=== PATIENT | male | born 1930 | race Hispanic/Latino ===

== ENCOUNTER 2016-09-02 14:17 | Inpatient (IN) | payer MEDICARE ==
[2016-09-02] MEDS ORDERED: TYLENOL PR STA (14:30)
[2016-09-02] MEDS ORDERED: NACL 0.9% 1000 ML 1,000 ML ONE (14:41)
[2016-09-02 15:04] LABS: Urine Drugs of Abuse Note Disclamer
[2016-09-02 15:15] LABS: Bilirubin,Urine NEG (Negative); Blood,Urine MOD (Negative); Ketones,Urine NEG (Negative); Leukocyte Esterase,Urine LG (Negative); Nitrite,Urine NEG (Negative); Urobilinogen,Urine < 2.0 mg/dL (<2.0)
[2016-09-02] MEDS ORDERED: CARDIZEM IV ONE ×2 (15:25→15:42)
[2016-09-02] MEDS ORDERED: NACL ONE (15:47)
[2016-09-02 15:55] LABS: Hematocrit 37.6 % (35.5-45.6); Hemoglobin 11.8 gm/dl (11.8-15.2); Mean Corpuscular HGB Conc 31 % (32-34); Mean Corpuscular Hemoglobin 27 pg (28-32); Mean Corpuscular Volume 88 fl (84-94); Platelet Count 246 K/mm3 (140-440); Red Cell Distribution Width 14.8 % (13.2-15.2)
[2016-09-02 16:00] LABS: White Blood Count 20.4 K/mm3 (4.5-11.0)
--- NOTE | 2016-09-02 16:04 | Emergency Department Report ---
HPI - General Chief Complaint: Altered Mental Status Time Seen by Provider: 09/02/16 15:27 - HPI HPI: Room 2 The patient is an 85-year-old female presenting with a chief complaint of altered mental status. Patient has a history of Parkinson's disease but is normally alert and talkative. Family states last normal time was approximately 2 days ago. Last night and today the patient appeared lethargic "glassy eyed" and would not speak clearly like it is at his baseline. Family states the patient would grunt occasionally. In coordinating as he is unable to hold water bottle and continued to miss his mouth when trying to drink. The daughter states the patient's urine smell very bad today subsequently the patient was sent from his assisted living facility to the ED for evaluation. Patient does not respond when asked how he is feeling. Location: Mental status Duration: At least 2 days Quality: Altered Severity: Moderate Modifying factors: [see above] Context: [see above] Mode of transportation: [not driving] ED Past Medical Hx - Past Medical History Previous Medical History?: Yes Hx COPD: Yes Hx Dementia: Yes Additional medical history: sleep apnea - Surgical History Past Surgical History?: Yes Additional Surgical History: hip surg, wrist surg, devited septum, vein surgery in legs (per family) - Family History Family history: no significant - Social History Smoking Status: Former Smoker (none since ) Substance Use Type: None - Medications Home Medications: Home Medications Medication Instructions Recorded Confirmed Last Taken Type Ascorbate Calcium [Vitamin C] 1 tab PO DAILY 02/24/14 09/02/16 02/21/14 History Ergocalciferol [Vitamin D2] 1 cap PO QMONTH 02/24/14 09/02/16 02/22/14 History Aspirin [Aspirin BABY CHEW TAB] 81 mg PO DAILY #30 tab.chew 12/14/14 09/02/16 Unknown Rx Carbidopa/Levodopa 25-100 [Sinemet 1 each PO QID #60 tablet 12/14/14 09/02/16 Unknown Rx 25/100] Lactobacillus Combo No.13 1 each PO QDAY 09/02/16 09/02/16 Unknown History [Probiotic Pearls Complete] Memantine Xr [Namenda Xr] 28 mg PO QHS 09/02/16 09/02/16 Unknown History Multivit-Minerals/FA/Lycopene [One 1 each PO QDAY 09/02/16 09/02/16 Unknown History Daily [employer] Tablet] Rivastigmine Tartrate [Exelon] 3 mg PO BID 09/02/16 09/02/16 Unknown History ED Review of Systems ROS: Stated complaint: AMS/ABD PAIN Other details as noted in HPI Comment: All other systems reviewed and negative Constitutional: malaise. denies: fever Eyes: denies: eye pain, eye discharge, vision change ENT: denies: ear pain, throat pain Respiratory: denies: cough, shortness of breath, wheezing Cardiovascular: denies: chest pain, palpitations Endocrine: no symptoms reported Gastrointestinal: abdominal pain Genitourinary: other (foul smelling urine). denies: urgency, dysuria Musculoskeletal: denies: back pain, joint swelling, arthralgia Skin: denies: lesions Neurological: confusion Psychiatric: denies: anxiety, depression Hematological/Lymphatic: denies: easy bleeding, easy bruising Physical Exam - Physical Exam Vital Signs: Vital Signs 09/02/16 09/02/16 14:29 14:42 Temperature 100.5 F H Pulse Rate 120 H Respiratory 17 17 Rate Blood Pressure 104/55 [Left] O2 Sat by Pulse 96 96 Oximetry Physical Exam: GENERAL: The patient is well-developed well-nourished male lying on stretcher appearing confused. [] HEENT: Normocephalic. Atraumatic. Extraocular motions are intact. Patient has moist mucous membranes. NECK: Supple. Trachea midline CHEST/LUNGS: Clear to auscultation. There is no respiratory distress noted. HEART/CARDIOVASCULAR: Irregularly irregular. There is tachycardia. There is no gallop rub or murmur. ABDOMEN: Abdomen is soft, nontender. Patient has normal bowel sounds. There is no abdominal distention. SKIN: There is no rash. There is no edema. There is no diaphoresis. NEURO: The patient is awake but appears lethargic. Patient does not cooperative with neurologic exam. The patient is seen moving all extremities. MUSCULOSKELETAL: There is no evidence of acute injury. ED Course Vital Signs 09/02/16 09/02/16 14:29 14:42 Temperature 100.5 F H Pulse Rate 120 H Respiratory 17 17 Rate Blood Pressure 104/55 [Left] O2 Sat by Pulse 96 96 Oximetry ED Medical Decision Making - Lab Data Result diagrams: 09/02/16 14:48 09/02/16 14:48 Laboratory Tests 09/02/16 09/02/16 09/02/16 14:40 14:40 14:48 WBC 20.4 H RBC 4.30 Hgb 11.8 Hct 37.6 MCV 88 MCH 27 L MCHC 31 L RDW 14.8 Plt Count 246 Add Manual Diff Complete Total Counted 100 Seg Neuts % (Manual) 92.0 H Band Neutrophils % 1.0 Lymphocytes % (Manual) 4.0 L Reactive Lymphs % (Man) 0 Monocytes % (Manual) 3.0 Eosinophils % (Manual) 0 Basophils % (Manual) 0 Metamyelocytes % 0 Myelocytes % 0 Promyelocytes % 0 Blast Cells % 0 Nucleated RBC % Not Reportable Seg Neutrophils # Man 18.8 H Band Neutrophils # 0.2 Lymphocytes # (Manual) 0.8 L Abs React Lymphs (Man) 0.0 Monocytes # (Manual) 0.6 Eosinophils # (Manual) 0.0 Basophils # (Manual) 0.0 Metamyelocytes # 0.0 Myelocytes # 0.0 Promyelocytes # 0.0 Blast Cells # 0.0 WBC Morphology Not Reportable Hypersegmented Neuts Not Reportable Hyposegmented Neuts Not Reportable Hypogranular Neuts Not Reportable Smudge Cells Not Reportable Toxic Granulation Not Reportable Toxic Vacuolation Not Reportable Dohle Bodies Not Reportable Pelger-Huet Anomaly Not Reportable Brittani Rods Not Reportable Platelet Estimate Appears normal Clumped Platelets Not Reportable Plt Clumps, EDTA Not Reportable Large Platelets Not Reportable Giant Platelets Not Reportable Platelet Satelliting Not Reportable Plt Morphology Comment Not Reportable RBC Morphology Not Reportable Dimorphic RBCs Not Reportable Polychromasia Not Reportable Hypochromasia Not Reportable Poikilocytosis Not Reportable Anisocytosis Not Reportable Microcytosis Not Reportable Macrocytosis Not Reportable Spherocytes Not Reportable Pappenheimer Bodies Not Reportable Sickle Cells Not Reportable Target Cells Not Reportable Tear Drop Cells Not Reportable Ovalocytes Few Helmet Cells Not Reportable [place] Bodies Not Reportable [place] Rings Not Reportable [place] Cells Not Reportable Bite Cells Not Reportable Crenated Cell Not Reportable Elliptocytes Not Reportable Acanthocytes (Spur) Not Reportable Rouleaux Not Reportable Hemoglobin C Crystals Not Reportable Schistocytes Not Reportable Malaria parasites Not Reportable Ronald Bodies Not Reportable Hem Pathologist Commnt No PT INR VBG pH Sodium Potassium Chloride Carbon Dioxide Anion Gap BUN Creatinine Estimated GFR BUN/Creatinine Ratio Glucose Lactic Acid Calcium Magnesium Total Bilirubin AST ALT Alkaline Phosphatase Total Protein Albumin Albumin/Globulin Ratio Lipase TSH Free T4 Urine Color Elinor Urine Turbidity Turbid Urine pH 7.0 Ur Specific [place] 1.014 Urine Protein 100 mg/dl Urine Glucose (UA) Neg Urine Ketones Neg Urine Blood Mod Urine Nitrite Neg Urine Bilirubin Neg Urine Urobilinogen < 2.0 Ur Leukocyte Esterase Lg Urine WBC (Auto) 159.0 H Urine RBC (Auto) 130.0 Urine Bacteria (Auto) 4+ Urine WBC Clumps 1+ Salicylates Urine Opiates Screen Presumptive negative Urine Methadone Screen Presumptive negative Acetaminophen Ur Barbiturates Screen Presumptive negative Ur Phencyclidine Scrn Presumptive negative Ur Amphetamines Screen Presumptive negative U Benzodiazepines Scrn Presumptive negative Urine Cocaine Screen Presumptive negative U Marijuana (THC) Screen Presumptive negative Drugs of Abuse Note Disclamer Plasma/Serum Alcohol 09/02/16 09/02/16 09/02/16 14:48 14:48 14:48 WBC RBC Hgb Hct MCV MCH MCHC RDW Plt Count Add Manual Diff Total Counted Seg Neuts % (Manual) Band Neutrophils % Lymphocytes % (Manual) Reactive Lymphs % (Man) Monocytes % (Manual) Eosinophils % (Manual) Basophils % (Manual) Metamyelocytes % Myelocytes % Promyelocytes % Blast Cells % Nucleated RBC % Seg Neutrophils # Man Band Neutrophils # Lymphocytes # (Manual) Abs React Lymphs (Man) Monocytes # (Manual) Eosinophils # (Manual) Basophils # (Manual) Metamyelocytes # Myelocytes # Promyelocytes # Blast Cells # WBC Morphology Hypersegmented Neuts Hyposegmented Neuts Hypogranular Neuts Smudge Cells Toxic Granulation Toxic Vacuolation Dohle Bodies Pelger-Huet Anomaly Brittani Rods Platelet Estimate Clumped Platelets Plt Clumps, EDTA Large Platelets Giant Platelets Platelet Satelliting Plt Morphology Comment RBC Morphology Dimorphic RBCs Polychromasia Hypochromasia Poikilocytosis Anisocytosis Microcytosis Macrocytosis Spherocytes Pappenheimer Bodies Sickle Cells Target Cells Tear Drop Cells Ovalocytes Helmet Cells [place] Bodies [place] Rings [place] Cells Bite Cells Crenated Cell Elliptocytes Acanthocytes (Spur) Rouleaux Hemoglobin C Crystals Schistocytes Malaria parasites Roanld Bodies Hem Pathologist Commnt PT INR VBG pH Sodium 152 H Potassium 4.5 Chloride 111.0 H Carbon Dioxide 24 Anion Gap 22 BUN 75 H Creatinine 3.1 H Estimated GFR 19 BUN/Creatinine Ratio 24.19 Glucose 124 H Lactic Acid 1.6 Calcium 8.9 Magnesium 2.8 H Total Bilirubin 0.3 AST 49 H ALT < 5 L Alkaline Phosphatase 118 Total Protein 8.0 Albumin 2.7 L Albumin/Globulin Ratio 0.5 Lipase 40 TSH 4.260 H Free T4 Urine Color Urine Turbidity Urine pH Ur Specific [place] Urine Protein Urine Glucose (UA) Urine Ketones Urine Blood Urine Nitrite Urine Bilirubin Urine Urobilinogen Ur Leukocyte Esterase Urine WBC (Auto) Urine RBC (Auto) Urine Bacteria (Auto) Urine WBC Clumps Salicylates Urine Opiates Screen Urine Methadone Screen Acetaminophen Ur Barbiturates Screen Ur Phencyclidine Scrn Ur Amphetamines Screen U Benzodiazepines Scrn Urine Cocaine Screen U Marijuana (THC) Screen Drugs of Abuse Note Plasma/Serum Alcohol 09/02/16 09/02/16 09/02/16 14:48 14:48 14:48 WBC RBC Hgb Hct MCV MCH MCHC RDW Plt Count Add Manual Diff Total Counted Seg Neuts % (Manual) Band Neutrophils % Lymphocytes % (Manual) Reactive Lymphs % (Man) Monocytes % (Manual) Eosinophils % (Manual) Basophils % (Manual) Metamyelocytes % Myelocytes % Promyelocytes % Blast Cells % Nucleated RBC % Seg Neutrophils # Man Band Neutrophils # Lymphocytes # (Manual) Abs React Lymphs (Man) Monocytes # (Manual) Eosinophils # (Manual) Basophils # (Manual) Metamyelocytes # Myelocytes # Promyelocytes # Blast Cells # WBC Morphology Hypersegmented Neuts Hyposegmented Neuts Hypogranular Neuts Smudge Cells Toxic Granulation Toxic Vacuolation Dohle Bodies Pelger-Huet Anomaly Brittani Rods Platelet Estimate Clumped Platelets Plt Clumps, EDTA Large Platelets Giant Platelets Platelet Satelliting Plt Morphology Comment RBC Morphology Dimorphic RBCs Polychromasia Hypochromasia Poikilocytosis Anisocytosis Microcytosis Macrocytosis Spherocytes Pappenheimer Bodies Sickle Cells Target Cells Tear Drop Cells Ovalocytes Helmet Cells [place] Bodies [place] Rings [place] Cells Bite Cells Crenated Cell Elliptocytes Acanthocytes (Spur) Rouleaux Hemoglobin C Crystals Schistocytes Malaria parasites Ronald Bodies Hem Pathologist Commnt PT INR VBG pH Sodium Potassium Chloride Carbon Dioxide Anion Gap BUN Creatinine Estimated GFR BUN/Creatinine Ratio Glucose Lactic Acid Calcium Magnesium Total Bilirubin AST ALT Alkaline Phosphatase Total Protein Albumin Albumin/Globulin Ratio Lipase TSH Free T4 Urine Color Urine Turbidity Urine pH Ur Specific [place] Urine Protein Urine Glucose (UA) Urine Ketones Urine Blood Urine Nitrite Urine Bilirubin Urine Urobilinogen Ur Leukocyte Esterase Urine WBC (Auto) Urine RBC (Auto) Urine Bacteria (Auto) Urine WBC Clumps Salicylates < 0.3 L Urine Opiates Screen Urine Methadone Screen Acetaminophen < 15.0 Ur Barbiturates Screen Ur Phencyclidine Scrn Ur Amphetamines Screen U Benzodiazepines Scrn Urine Cocaine Screen U Marijuana (THC) Screen Drugs of Abuse Note Plasma/Serum Alcohol < 0.01 09/02/16 09/02/16 09/02/16 14:48 14:48 14:48 WBC RBC Hgb Hct MCV MCH MCHC RDW Plt Count Add Manual Diff Total Counted Seg Neuts % (Manual) Band Neutrophils % Lymphocytes % (Manual) Reactive Lymphs % (Man) Monocytes % (Manual) Eosinophils % (Manual) Basophils % (Manual) Metamyelocytes % Myelocytes % Promyelocytes % Blast Cells % Nucleated RBC % Seg Neutrophils # Man Band Neutrophils # Lymphocytes # (Manual) Abs React Lymphs (Man) Monocytes # (Manual) Eosinophils # (Manual) Basophils # (Manual) Metamyelocytes # Myelocytes # Promyelocytes # Blast Cells # WBC Morphology Hypersegmented Neuts Hyposegmented Neuts Hypogranular Neuts Smudge Cells Toxic Granulation Toxic Vacuolation Dohle Bodies Pelger-Huet Anomaly Brittani Rods Platelet Estimate Clumped Platelets Plt Clumps, EDTA Large Platelets Giant Platelets Platelet Satelliting Plt Morphology Comment RBC Morphology Dimorphic RBCs Polychromasia Hypochromasia Poikilocytosis Anisocytosis Microcytosis Macrocytosis Spherocytes Pappenheimer Bodies Sickle Cells Target Cells Tear Drop Cells Ovalocytes Helmet Cells [place] Bodies [place] Rings [place] Cells Bite Cells Crenated Cell Elliptocytes Acanthocytes (Spur) Rouleaux Hemoglobin C Crystals Schistocytes Malaria parasites Ronald Bodies Hem Pathologist Commnt PT 14.9 INR 1.18 H VBG pH 7.356 Sodium Potassium Chloride Carbon Dioxide Anion Gap BUN Creatinine Estimated GFR BUN/Creatinine Ratio Glucose Lactic Acid Calcium Magnesium Total Bilirubin AST ALT Alkaline Phosphatase Total Protein Albumin Albumin/Globulin Ratio Lipase TSH Free T4 1.15 Urine Color Urine Turbidity Urine pH Ur Specific [place] Urine Protein Urine Glucose (UA) Urine Ketones Urine Blood Urine Nitrite Urine Bilirubin Urine Urobilinogen Ur Leukocyte Esterase Urine WBC (Auto) Urine RBC (Auto) Urine Bacteria (Auto) Urine WBC Clumps Salicylates Urine Opiates Screen Urine Methadone Screen Acetaminophen Ur Barbiturates Screen Ur Phencyclidine Scrn Ur Amphetamines Screen U Benzodiazepines Scrn Urine Cocaine Screen U Marijuana (THC) Screen Drugs of Abuse Note Plasma/Serum Alcohol - EKG Data -: EKG Interpreted by Me Rate: tachycardia (124 bpm) - EKG Data Interpretation: other (atrial fibrillation with a rapid ventricular response) - Radiology Data Radiology results: report reviewed (CT head, CT abdomen and pelvis), image reviewed (chest x-ray, CT head, CT abdomen and pelvis) interpreted by me: Chest x-ray-no definite focal infiltrates, no pneumothorax CT head (read by radiologist)-no acute abnormality is seen CT abdomen and pelvis (read by radiologist)-findings worrisome for multiple hepatic masses with metastatic disease and the most likely etiology. 3.3 cm mid to distal abdominal aortic aneurysm seen. Bilateral nephrolithiasis is seen with large stones and possible staghorn calculi. 5 mm stone is seen in the mid left ureter causing minimal left-sided hydronephrosis. Prominent attained fecal material seen in the rectum with more mild retained fecal material elsewhere. - Differential Diagnosis new-onset A. fib, CVA, ICH, pneumonia, UTI Critical care attestation.: If time is entered above; I have spent that time in minutes in the direct care of this critically ill patient, excluding procedure time. ED Disposition Clinical Impression: Altered mental status, Atrial fibrillation with rapid ventricular response, Acute renal failure, Fever, UTI (urinary tract infection), Leukocytosis, Hypernatremia, Ureterolithiasis, Liver masses, Abdominal aortic aneurysm Disposition: OP ADMITTED IP TO THIS HOSP Is pt being admited?: Yes Does the pt Need Aspirin: No Condition: Serious Referrals: PRIMARY CARE, [Primary Care Provider] - 3-5 Days Time of Disposition: 17:34 (hospitalist notified)
[2016-09-02 16:05] LABS: Albumin 2.7 g/dL (3.9-5); Albumin/Globulin Ratio 0.5 %; Alkaline Phosphatase 118 units/L (35-129); Anion Gap 22 mmol/L; BUN/Creatinine Ratio 24.19; Bilirubin,Total 0.3 mg/dL (0.1-1.2); Blood Urea Nitrogen 75 mg/dL (9-20); Calcium 8.9 mg/dL (8.4-10.2); Carbon Dioxide 24 mmol/L (22-30); Glucose 124 mg/dL (75-100); Lipase 40 units/L (13-60); Magnesium 2.8 mg/dL (1.7-2.3); Potassium 4.5 mmol/L (3.6-5.0); Sodium 152 mmol/L (137-145)
[2016-09-02 16:08] LABS: Bacteria,Urine 4+ /HPF (Negative)
[2016-09-02] MEDS ORDERED: ROCEPHIN/NS 1 GM/50 ML 1 GM/50 ML BAG IV ONE (16:13)
[2016-09-02 16:14] LABS: Alanine Aminotransferase < 5 units/L (7-56)
[2016-09-02 16:19] LABS: INR 1.18 (0.87-1.13)
[2016-09-02 16:39] LABS: Basophils % (Manual) 0 % (0.0-1.8); Blastocytes % (Manual) 0 %; Eosinophils % (Manual) 0 % (0.0-4.3)
[2016-09-02 16:40] LABS: Ovalocytes Few
[2016-09-02 16:41] LABS: Diff Status Complete
[2016-09-02] MEDS ORDERED: NACL 0.9% 1000 ML 1,000 ML IV ONE (17:00)
[2016-09-02] MEDS ORDERED: CARDIZEM/D5W 100MG/100ML 100 MG/100 ML BAG IV ONE (17:00)
--- NOTE | 2016-09-02 17:10 | Cat Scan Report ---
FINAL REPORT PROCEDURE: CT HEAD/BRAIN WO CON TECHNIQUE: Computerized tomography of the head was performed without contrast material. HISTORY: altered mental status COMPARISON: No prior studies are available for comparison. FINDINGS: Changes of chronic sinusitis are seen in the left maxillary sinus. Mastoid air cells appear clear. No calvarial fracture is seen. Prominent diffuse volume loss is seen with compensatory enlargement of the ventricular system. 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 Mild associated gliosis is seen. Mild chronic small vessel ischemic changes are seen in the periventricular white matter diffusely. No acute CVA is seen. No acute intracranial hemorrhage or mass effect is seen. IMPRESSION: Prominent diffuse volume loss is seen with mild chronic ischemic changes. No acute abnormality is seen.
--- NOTE | 2016-09-02 17:28 | Cat Scan Report ---
FINAL REPORT PROCEDURE: CT ABDOMEN PELVIS WO CON TECHNIQUE: Computerized axial tomography of the abdomen and pelvis was performed without intravenous contrast. This study is performed without intravascular contrast material and its sensitivity for abdominal and pelvic pathology, including neoplasms, inflammation, abscess, free fluid, thrombosis, arterial dissection and infarction, is reduced compared with a contrast enhanced study. HISTORY: altered mental status, history of lower abd pain COMPARISON: No prior studies are available for comparison. FINDINGS: Mild hypoventilatory changes are seen at the lung bases. Artifacts slightly limit the study. Spleen is normal in size. There appear to be vague low-density lesions in the left and right hepatic lobes that are highly worrisome for malignancy, most likely metastatic disease. These cannot be accurately measured on this unenhanced study. Correlation with contrast-enhanced CT or MRI is recommended. Tiny gallstone is seen without evidence of cholecystitis or biliary ductal dilation. Pancreas appears normal. Adrenal glands are normal in size. 3.3 cm mid to distal abdominal aortic aneurysm is seen beginning approximately 3.8 cm below the level of the renal arteries. There is bilateral nephrolithiasis with staghorn calculi seen in the right kidney measuring up to 2.1 x 1.8 cm on image 65 of the axial series. Largest calculus in the left kidney measures 2.0 x 0.9 cm on image 66. Mild increased perinephric streaky densities may be from poor renal function. No right ureteral stone or hydronephrosis is seen there is a likely 5 millimeter stone in the left mid ureter with minimal left-sided hydronephrosis. Bladder is decompressed with a [place] catheter. Bladder wall appears possibly thickened and correlation with urinalysis is recommended. No prostate enlargement is seen. Rectum is dilated to 8.8 cm in diameter with soft fecal material. Little retained fecal material is seen in the descending colon and sigmoid colon. Mild right-sided constipation is suspected. Appendix is not seen. No free pelvic fluid is seen. No suspicious abdominal or pelvic lymphadenopathy is seen. Moderate levoscoliosis is seen in the lumbar spine with moderate to prominent lumbar spondylosis. IMPRESSION: Findings are worrisome for multiple hepatic masses with metastatic disease being the most likely etiology. Correlation with contrast-enhanced CT or MRI is recommended. 3.3 cm mid to distal abdominal aortic aneurysm is seen. Bilateral nephrolithiasis is seen with large stones and possible staghorn calculi. 5 millimeter stone is seen in the mid left ureter causing minimal left-sided hydronephrosis. Prominent retained fecal material is seen in the rectum with more mild retained fecal material elsewhere.
--- NOTE | 2016-09-02 17:35 | History and Physical Report ---
History of Present Illness Chief complaint: Confusion, not acting like normal History of present illness: 85 YO Male with COPD, YESY, Malnutrition, Dementia presents to ED for evaluation. Pt in unable to provide history. Pt family provides history. Pt was at his baseline two days ago as per family. Pt is normally talkative, ambulates independently, feeds himself and conducts ADL's at his Assisted [facility] Facility. Pt has become increasingly confused and weak over the past two days. Pt is now unable to ambulate and care for himself. Pt family denies reports of fever, chills, CP, Palpitation, head trauma, BRBPR, skin rashes, or recent ill contacts. Pt seen in ED and found to have A fib with RVR and initiated on cardizem drip. Past History Past Medical History: cancer, COPD Past Surgical History: Other (Hip, wrist, vblood vessel) Social history: . denies: smoking, alcohol abuse Family history: hypertension Medications and Allergies Allergies Allergy/AdvReac Type Severity Reaction Status Date / Time morphine Allergy AGITATED Verified 02/24/14 16:34 Home Medications Medication Instructions Recorded Confirmed Last Taken Type Ascorbate Calcium [Vitamin C] 1 tab PO DAILY 02/24/14 09/02/16 02/21/14 History Ergocalciferol [Vitamin D2] 1 cap PO QMONTH 02/24/14 09/02/16 02/22/14 History Aspirin [Aspirin BABY CHEW TAB] 81 mg PO DAILY #30 tab.chew 12/14/14 09/02/16 Unknown Rx Carbidopa/Levodopa 25-100 [Sinemet 1 each PO QID #60 tablet 12/14/14 09/02/16 Unknown Rx 25/100] Lactobacillus Combo No.13 1 each PO QDAY 09/02/16 09/02/16 Unknown History [Probiotic Pearls Complete] Memantine Xr [Namenda Xr] 28 mg PO QHS 09/02/16 09/02/16 Unknown History Multivit-Minerals/FA/Lycopene [One 1 each PO QDAY 09/02/16 09/02/16 Unknown History Daily Men's Health Tablet] Rivastigmine Tartrate [Exelon] 3 mg PO BID 09/02/16 09/02/16 Unknown History Active Meds: Active Medications Diltiazem HCl (Cardizem/D5w 100mg/100ml) 100 mg in 100 mls @ 5 mls/hr IV TITR ONE; 5 MG/HR PRN Reason: Protocol Stop: 09/03/16 12:59 Sodium Chloride (Nacl 0.9% 1000 Ml) 1,000 mls @ 250 mls/hr IV ONCE ONE Stop: 09/02/16 20:59 Review of Systems ROS unobtainable: due to mental status Exam - Constitutional Vitals: Temp Pulse Resp BP Pulse Ox 100.5 F H 109 H 16 125/64 93 09/02/16 14:42 09/02/16 16:15 09/02/16 16:15 09/02/16 16:15 09/02/16 16:15 General appearance: Present: severe distress, cachectic - EENT Eyes: Present: PERRL ENT: hearing intact - Neck Neck: Present: supple - Respiratory Respiratory: bilateral: diminished - Cardiovascular Rhythm: irregularly irregular - Extremities Extremities: pulses symmetrical, No edema Peripheral Pulses: within normal limits - Abdominal General gastrointestinal: Present: soft, non-tender, non-distended, normal bowel sounds Male genitourinary: Present: normal - Integumentary Integumentary: Present: clear, dry, decreased turgor - Musculoskeletal Musculoskeletal: generalized weakness - Psychiatric Psychiatric: no intact judgment & insight, no memory intact - Neurologic Neurologic: CNII-XII intact, moves all extremities, no gait normal Results - Labs CBC & Chem 7: 09/03/16 06:05 09/03/16 06:05 Labs: Abnormal lab results 09/02/16 09/02/16 09/02/16 Range/Units 14:40 14:48 14:48 WBC 20.4 H (4.5-11.0) K/mm3 MCH 27 L (28-32) pg MCHC 31 L (32-34) % Seg Neuts % (Manual) 92.0 H (40.0-70.0) % Lymphocytes % (Manual) 4.0 L (13.4-35.0) % Seg Neutrophils # Man 18.8 H (1.8-7.7) K/mm3 Lymphocytes # (Manual) 0.8 L (1.2-5.4) K/mm3 INR (0.87-1.13) Sodium 152 H (137-145) mmol/L Chloride 111.0 H (98-107) mmol/L BUN 75 H (9-20) mg/dL Creatinine 3.1 H (0.8-1.5) mg/dL Glucose 124 H (75-100) mg/dL Magnesium 2.8 H (1.7-2.3) mg/dL AST 49 H (5-40) units/L ALT < 5 L (7-56) units/L Albumin 2.7 L (3.9-5) g/dL TSH (0.270-4.200) mlU/mL Urine WBC (Auto) 159.0 H (0.0-6.0) /HPF Salicylates (2.8-20.0) mg/dL 09/02/16 09/02/16 09/02/16 Range/Units 14:48 14:48 14:48 WBC (4.5-11.0) K/mm3 MCH (28-32) pg MCHC (32-34) % Seg Neuts % (Manual) (40.0-70.0) % Lymphocytes % (Manual) (13.4-35.0) % Seg Neutrophils # Man (1.8-7.7) K/mm3 Lymphocytes # (Manual) (1.2-5.4) K/mm3 INR 1.18 H (0.87-1.13) Sodium (137-145) mmol/L Chloride (98-107) mmol/L BUN (9-20) mg/dL Creatinine (0.8-1.5) mg/dL Glucose (75-100) mg/dL Magnesium (1.7-2.3) mg/dL AST (5-40) units/L ALT (7-56) units/L Albumin (3.9-5) g/dL TSH 4.260 H (0.270-4.200) mlU/mL Urine WBC (Auto) (0.0-6.0) /HPF Salicylates < 0.3 L (2.8-20.0) mg/dL Assessment and Plan - Patient Problems (1) Sepsis Current Visit: Yes Status: Acute Qualifiers: Sepsis type: S Plan to address problem: Sepsis protocol: IV abx, IVF, supportive care, serial lactate, monitor uop q shift, (2) Malnutrition Current Visit: Yes Status: Acute Plan to address problem: encourage oral intake when alert and awake, (3) Encephalopathy Current Visit: Yes Status: Acute Plan to address problem: Supportive care, treat sepsis, (4) UTI (urinary tract infection) Current Visit: Yes Status: Acute Qualifiers: Urinary tract infection type: U Hematuria presence: H Indwelling urinary catheter type: I Encounter type: E Plan to address problem: IV abx, IVF,supportive care, (5) Atrial fibrillation with rapid ventricular response Current Visit: Yes Status: Acute Plan to address problem: Cardizem drip, supportive care, admit to ICU The high probability of a clinically significant, sudden or life threatening deterioration of the [cardiac, pulmonary] system(s) required my full and direct attention, intervention and personal management. The aggregate critical care time was [50] minutes. This time is in addition to time spent performing reported procedures but includes the following: [x] Data Review and interpretation [x] Patient assessment and monitoring of vital signs [x] Documentation [x] Medication orders and management (6) DVT prophylaxis Current Visit: Yes Status: Acute
[2016-09-02] MEDS ORDERED: DUONEB 0.5 MG-3 MG/3 ML SOLN IH PRN (17:52)
[2016-09-02] MEDS ORDERED: PROVENTIL IH PRN ×2 (17:59)
[2016-09-02] MEDS ORDERED: TYLENOL PR ONE (19:22)
[2016-09-02] MEDS: SINEMET PO SCH ×2 (19:36→22:08)
[2016-09-02] MEDS: EXELON PO SCH (22:08)
[2016-09-02] MEDS: NAMENDA XR PO SCH (22:08)
[2016-09-03] MEDS: DUONEB 0.5 MG-3 MG/3 ML SOLN IH SCH ×5 (02:23→19:25)
[2016-09-03 06:32] LABS: Basophils % (Auto) 0.1 % (0.0-1.8); Eosinophils % (Auto) 0.4 % (0.0-4.3); Mean Corpuscular HGB Conc 31 % (32-34); Mean Corpuscular Hemoglobin 27 pg (28-32); Mean Corpuscular Volume 90 fl (84-94); Platelet Count 199 K/mm3 (140-440); White Blood Count 15.5 K/mm3 (4.5-11.0)
[2016-09-03 06:54] LABS: Albumin 2.4 g/dL (3.9-5); Albumin/Globulin Ratio 0.5 %; Alkaline Phosphatase 99 units/L (35-129); Anion Gap 18 mmol/L; BUN/Creatinine Ratio 25.38; Bilirubin,Total 0.3 mg/dL (0.1-1.2); Blood Urea Nitrogen 66 mg/dL (9-20); Calcium 8.4 mg/dL (8.4-10.2); Carbon Dioxide 23 mmol/L (22-30); Chloride 118.5 mmol/L (98-107); Glucose 92 mg/dL (75-100); Potassium 4.7 mmol/L (3.6-5.0); Sodium 155 mmol/L (137-145); Total Protein 6.9 g/dL (6.3-8.2)
[2016-09-03 06:57] LABS: Hematocrit 35.9 % (35.5-45.6)
[2016-09-03 06:58] LABS: Alanine Aminotransferase < 5 units/L (7-56)
--- NOTE | 2016-09-03 09:35 | XRay Report ---
AP CHEST History: Sepsis, Findings: A subtle 2.5 cm density is identified in the lateral left lung which appears to be new since 12/09/14. The remainder of the lungs are clear. No pleural effusion or pneumothorax. Heart and mediastinal structures remain within normal limits. Impression: Subtle left lung opacity as described. This could represent scarring, infiltrate or small mass. Consider further evaluation with CT chest with contrast.
[2016-09-03] MEDS ORDERED: LEVAQUIN 750MG/150ML 750 MG/150 ML BAG IV SCH (10:00)
[2016-09-03] MEDS: SINEMET PO SCH ×4 (10:32→21:57)
[2016-09-03] MEDS: EXELON PO SCH ×2 (10:32→21:57)
[2016-09-03] MEDS: ASPIRIN PO SCH (10:32)
[2016-09-03] MEDS: NACL 0.9% 1000 ML 1,000 ML IV SCH ×2 (14:08→20:17)
[2016-09-03] MEDS ORDERED: TYLENOL PO PRN (16:34)
--- NOTE | 2016-09-03 21:41 | Progress Note ---
Hospitalist Physical - Constitutional Vitals: Temp Pulse Resp BP Pulse Ox 97.9 F 86 22 135/65 96 09/03/16 20:00 09/03/16 20:00 09/03/16 20:00 09/03/16 20:00 09/03/16 20:00 General appearance: Present: severe distress, cachectic Results - Labs CBC & Chem 7: 09/03/16 06:05 09/03/16 06:05 Labs: Laboratory Last Values WBC 15.5 K/mm3 (4.5-11.0) H 09/03/16 06:05 RBC 4.00 M/mm3 (3.65-5.03) 09/03/16 06:05 Hgb 11.0 gm/dl (11.8-15.2) L 09/03/16 06:05 Hct 35.9 % (35.5-45.6) 09/03/16 06:05 MCV 90 fl (84-94) 09/03/16 06:05 MCH 27 pg (28-32) L 09/03/16 06:05 MCHC 31 % (32-34) L 09/03/16 06:05 RDW 15.0 % (13.2-15.2) 09/03/16 06:05 Plt Count 199 K/mm3 (140-440) 09/03/16 06:05 Lymph % (Auto) 4.8 % (13.4-35.0) L 09/03/16 06:05 [place] % (Auto) 6.8 % (0.0-7.3) 09/03/16 06:05 Eos % (Auto) 0.4 % (0.0-4.3) 09/03/16 06:05 Baso % (Auto) 0.1 % (0.0-1.8) 09/03/16 06:05 Lymph # 0.7 K/mm3 (1.2-5.4) L 09/03/16 06:05 [place] # 1.1 K/mm3 (0.0-0.8) H 09/03/16 06:05 Eos # 0.1 K/mm3 (0.0-0.4) 09/03/16 06:05 Baso # 0.0 K/mm3 (0.0-0.1) 09/03/16 06:05 Add Manual Diff Complete 09/02/16 14:48 Total Counted 100 09/02/16 14:48 Seg Neutrophils % 87.9 % (40.0-70.0) H 09/03/16 06:05 Seg Neuts % (Manual) 92.0 % (40.0-70.0) H 09/02/16 14:48 Band Neutrophils % 1.0 % 09/02/16 14:48 Lymphocytes % (Manual) 4.0 % (13.4-35.0) L 09/02/16 14:48 Reactive Lymphs % (Man) 0 % 09/02/16 14:48 Monocytes % (Manual) 3.0 % (0.0-7.3) 09/02/16 14:48 Eosinophils % (Manual) 0 % (0.0-4.3) 09/02/16 14:48 Basophils % (Manual) 0 % (0.0-1.8) 09/02/16 14:48 Metamyelocytes % 0 % 09/02/16 14:48 Myelocytes % 0 % 09/02/16 14:48 Promyelocytes % 0 % 09/02/16 14:48 Blast Cells % 0 % 09/02/16 14:48 Nucleated RBC % Not Reportable 09/02/16 14:48 Seg Neutrophils # 13.6 K/mm3 (1.8-7.7) H 09/03/16 06:05 Seg Neutrophils # Man 18.8 K/mm3 (1.8-7.7) H 09/02/16 14:48 Band Neutrophils # 0.2 K/mm3 09/02/16 14:48 Lymphocytes # (Manual) 0.8 K/mm3 (1.2-5.4) L 09/02/16 14:48 Abs React Lymphs (Man) 0.0 K/mm3 09/02/16 14:48 Monocytes # (Manual) 0.6 K/mm3 (0.0-0.8) 09/02/16 14:48 Eosinophils # (Manual) 0.0 K/mm3 (0.0-0.4) 09/02/16 14:48 Basophils # (Manual) 0.0 K/mm3 (0.0-0.1) 09/02/16 14:48 Metamyelocytes # 0.0 K/mm3 09/02/16 14:48 Myelocytes # 0.0 K/mm3 09/02/16 14:48 Promyelocytes # 0.0 K/mm3 09/02/16 14:48 Blast Cells # 0.0 K/mm3 09/02/16 14:48 WBC Morphology Not Reportable 09/02/16 14:48 Hypersegmented Neuts Not Reportable 09/02/16 14:48 Hyposegmented Neuts Not Reportable 09/02/16 14:48 Hypogranular Neuts Not Reportable 09/02/16 14:48 Smudge Cells Not Reportable 09/02/16 14:48 Toxic Granulation Not Reportable 09/02/16 14:48 Toxic Vacuolation Not Reportable 09/02/16 14:48 Dohle Bodies Not Reportable 09/02/16 14:48 Pelger-Huet Anomaly Not Reportable 09/02/16 14:48 Brittani Rods Not Reportable 09/02/16 14:48 Platelet Estimate Appears normal 09/02/16 14:48 Clumped Platelets Not Reportable 09/02/16 14:48 Plt Clumps, EDTA Not Reportable 09/02/16 14:48 Large Platelets Not Reportable 09/02/16 14:48 Giant Platelets Not Reportable 09/02/16 14:48 Platelet Satelliting Not Reportable 09/02/16 14:48 Plt Morphology Comment Not Reportable 09/02/16 14:48 RBC Morphology Not Reportable 09/02/16 14:48 Dimorphic RBCs Not Reportable 09/02/16 14:48 Polychromasia Not Reportable 09/02/16 14:48 Hypochromasia Not Reportable 09/02/16 14:48 Poikilocytosis Not Reportable 09/02/16 14:48 Anisocytosis Not Reportable 09/02/16 14:48 Microcytosis Not Reportable 09/02/16 14:48 Macrocytosis Not Reportable 09/02/16 14:48 Spherocytes Not Reportable 09/02/16 14:48 Pappenheimer Bodies Not Reportable 09/02/16 14:48 Sickle Cells Not Reportable 09/02/16 14:48 Target Cells Not Reportable 09/02/16 14:48 Tear Drop Cells Not Reportable 09/02/16 14:48 Ovalocytes Few 09/02/16 14:48 Helmet Cells Not Reportable 09/02/16 14:48 [place] Bodies Not Reportable 09/02/16 14:48 [place] Rings Not Reportable 09/02/16 14:48 Candor Cells Not Reportable 09/02/16 14:48 Bite Cells Not Reportable 09/02/16 14:48 Crenated Cell Not Reportable 09/02/16 14:48 Elliptocytes Not Reportable 09/02/16 14:48 Acanthocytes (Spur) Not Reportable 09/02/16 14:48 Rouleaux Not Reportable 09/02/16 14:48 Hemoglobin C Crystals Not Reportable 09/02/16 14:48 Schistocytes Not Reportable 09/02/16 14:48 Malaria parasites Not Reportable 09/02/16 14:48 Ronald Bodies Not Reportable 09/02/16 14:48 Hem Pathologist Commnt No 09/02/16 14:48 PT 14.9 Sec. (12.2-14.9) 09/02/16 14:48 INR 1.18 (0.87-1.13) H 09/02/16 14:48 VBG pH 7.356 (7.320-7.420) 09/02/16 14:48 Sodium 155 mmol/L (137-145) H 09/03/16 06:05 Potassium 4.7 mmol/L (3.6-5.0) 09/03/16 06:05 Chloride 118.5 mmol/L (98-107) H 09/03/16 06:05 Carbon Dioxide 23 mmol/L (22-30) 09/03/16 06:05 Anion Gap 18 mmol/L 09/03/16 06:05 BUN 66 mg/dL (9-20) H 09/03/16 06:05 Creatinine 2.6 mg/dL (0.8-1.5) H 09/03/16 06:05 Estimated GFR 24 ml/min 09/03/16 06:05 BUN/Creatinine Ratio 25.38 % 09/03/16 06:05 Glucose 92 mg/dL (75-100) 09/03/16 06:05 Lactic Acid 0.7 mmol/L (0.7-2.0) 09/02/16 20:42 Calcium 8.4 mg/dL (8.4-10.2) 09/03/16 06:05 Magnesium 2.8 mg/dL (1.7-2.3) H 09/02/16 14:48 Total Bilirubin 0.3 mg/dL (0.1-1.2) 09/03/16 06:05 AST 37 units/L (5-40) 09/03/16 06:05 ALT < 5 units/L (7-56) L 09/03/16 06:05 Alkaline Phosphatase 99 units/L (35-129) 09/03/16 06:05 Total Protein 6.9 g/dL (6.3-8.2) 09/03/16 06:05 Albumin 2.4 g/dL (3.9-5) L 09/03/16 06:05 Albumin/Globulin Ratio 0.5 % 09/03/16 06:05 Lipase 40 units/L (13-60) 09/02/16 14:48 TSH 4.290 mlU/mL (0.270-4.200) H 09/02/16 14:48 Free T4 1.15 ng/dL (0.76-1.46) 09/02/16 14:48 Urine Color Elinor (Yellow) 09/02/16 14:40 Urine Turbidity Turbid (Clear) 09/02/16 14:40 Urine pH 7.0 (5.0-7.0) 09/02/16 14:40 Ur Specific [place] 1.014 (1.003-1.030) 09/02/16 14:40 Urine Protein 100 mg/dl mg/dL (Negative) 09/02/16 14:40 Urine Glucose (UA) Neg mg/dL (Negative) 09/02/16 14:40 Urine Ketones Neg mg/dL (Negative) 09/02/16 14:40 Urine Blood Mod (Negative) 09/02/16 14:40 Urine Nitrite Neg (Negative) 09/02/16 14:40 Urine Bilirubin Neg (Negative) 09/02/16 14:40 Urine Urobilinogen < 2.0 mg/dL (<2.0) 09/02/16 14:40 Ur Leukocyte Esterase Lg (Negative) 09/02/16 14:40 Urine WBC (Auto) 159.0 /HPF (0.0-6.0) H 09/02/16 14:40 Urine RBC (Auto) 130.0 /HPF (0.0-6.0) 09/02/16 14:40 Urine Bacteria (Auto) 4+ /HPF (Negative) 09/02/16 14:40 Urine WBC Clumps 1+ /HPF 09/02/16 14:40 Salicylates < 0.3 mg/dL (2.8-20.0) L 09/02/16 14:48 Urine Opiates Screen Presumptive negative 09/02/16 14:40 Urine Methadone Screen Presumptive negative 09/02/16 14:40 Acetaminophen < 15.0 ug/mL (10.0-30.0) 09/02/16 14:48 Ur Barbiturates Screen Presumptive negative 09/02/16 14:40 Ur Phencyclidine Scrn Presumptive negative 09/02/16 14:40 Ur Amphetamines Screen Presumptive negative 09/02/16 14:40 U Benzodiazepines Scrn Presumptive negative 09/02/16 14:40 Urine Cocaine Screen Presumptive negative 09/02/16 14:40 U Marijuana (THC) Screen Presumptive negative 09/02/16 14:40 Drugs of Abuse Note Disclamer 09/02/16 14:40 Plasma/Serum Alcohol < 0.01 gm% (0-0.07) 09/02/16 14:48
[2016-09-03] MEDS: NAMENDA XR PO SCH (21:57)
[2016-09-04] MEDS: DUONEB 0.5 MG-3 MG/3 ML SOLN IH SCH ×4 (01:03→19:47)
[2016-09-04] MEDS: NACL 0.9% 1000 ML 1,000 ML IV SCH ×2 (06:13→18:26)
[2016-09-04] MEDS: ASPIRIN PO SCH (10:41)
[2016-09-04] MEDS: EXELON PO SCH ×2 (10:41→21:51)
[2016-09-04] MEDS: SINEMET PO SCH ×4 (10:41→21:51)
--- NOTE | 2016-09-04 11:24 | Admit Criteria Form ---
Admission Criteria Documentation: SEPSIS and OTHER FEBRILE ILLNESS, W/O FOCAL INFECTION Clinical Indications for Admission to Inpatient Care ( Place 'X' for any and all applicable criteria): Admission is indicated for ANY ONE of the following (1)(2)(3)(4): [X] I. Bacteremia [X]II. Suspected or identified specific infection requiring hospitalization (eg, meningitis, endocarditis) [ ]III. Hemodynamic instability [X]IV. Altered mental status [ ]V. Failure or unavailability of outpatient antimicrobial treatment [ ]. Hypoxemia [ ]VII. Seizures [ ]VIII. High-risk febrile neutropenia [ ]IX. Need for parenteral antibiotic in patient who is likely to abuse vascular access device (eg, injection drug user) [A](7) [ ]X. Temperature greater than 104.9 degrees F (40.5 degrees C) (oral) [X]XI. Inpatient admission required rather than observation care because of ANY ONE of the following: [X]1) Specific infection identified that is too severe for outpatient treatment or observation care trial [ ]2) Metabolic disorder (eg, hypoglycemia, hyperglycemia, metabolic acidosis) that is severe or persistent [ ]3) Temperature greater than 103.1 degrees F (39.5 degrees C) ( oral) that is not responsive to observation care treatment [ ]4) IV fluid to replace significant ongoing (eg, for over 24 hours) losses (> 3 L/m2 per day) [ ]5) Supplemental oxygen or respiratory treatments for over 24 hours that is performable only in acute inpatient setting [ ]6) Parenteral nutrition regimen need that must be implemented on inpatient basis [ ]7) Strict or protective (eg, laminar flow) isolation [X]8) Other condition, treatment or monitoring requiring inpatient admission Extended stay beyond goal length of stay may be needed for(1)(3) [ ]a) Sepsis or septic shock(22) [ ]b) Positive blood cultures [ ]c) Insufficient oral intake [ ]d) High-risk febrile neutropenia(29)(30) [ ]e) Continued fever and clinical instability [ ]f) Clinically active comorbid illness (e.g,heart failure, renal failure , diabetes) The original [facility] [employer] content created by Sabine Lee has been revised. The portions of the content which have been revised are identified through the use of italic text or in bold, and Sabine Mace[employer] has neither reviewed nor approved the modified material. All other unmodified content is copyright [facility]. Please see references footnoted in the original [facility] edition 2016 Admission Criteria Met: Yes
[2016-09-04 11:28] LABS: Basophils % (Auto) 0.1 % (0.0-1.8); Eosinophils % (Auto) 0.2 % (0.0-4.3); Hematocrit 30.6 % (35.5-45.6); Hemoglobin 9.7 gm/dl (11.8-15.2); Mean Corpuscular HGB Conc 32 % (32-34); Mean Corpuscular Hemoglobin 28 pg (28-32); Mean Corpuscular Volume 87 fl (84-94); Platelet Count 184 K/mm3 (140-440); Red Cell Distribution Width 14.8 % (13.2-15.2); White Blood Count 9.8 K/mm3 (4.5-11.0)
[2016-09-04 11:46] LABS: BUN/Creatinine Ratio 22.17; Calcium 8.6 mg/dL (8.4-10.2); Chloride 123.8 mmol/L (98-107); Potassium 4.3 mmol/L (3.6-5.0)
--- NOTE | 2016-09-04 20:29 | Progress Note ---
Hospitalist Physical - Constitutional Vitals: Temp Pulse Resp BP Pulse Ox 97.7 F 106 H 20 175/92 98 09/04/16 18:13 09/04/16 19:56 09/04/16 19:56 09/04/16 18:13 09/04/16 19:52 General appearance: Present: severe distress, cachectic Results - Labs CBC & Chem 7: 09/04/16 11:11 09/04/16 11:11 Labs: Laboratory Last Values WBC 9.8 K/mm3 (4.5-11.0) 09/04/16 11:11 RBC 3.50 M/mm3 (3.65-5.03) L 09/04/16 11:11 Hgb 9.7 gm/dl (11.8-15.2) L 09/04/16 11:11 Hct 30.6 % (35.5-45.6) L 09/04/16 11:11 MCV 87 fl (84-94) D 09/04/16 11:11 MCH 28 pg (28-32) 09/04/16 11:11 MCHC 32 % (32-34) 09/04/16 11:11 RDW 14.8 % (13.2-15.2) 09/04/16 11:11 Plt Count 184 K/mm3 (140-440) 09/04/16 11:11 Lymph % (Auto) 5.2 % (13.4-35.0) L 09/04/16 11:11 [place] % (Auto) 7.1 % (0.0-7.3) 09/04/16 11:11 Eos % (Auto) 0.2 % (0.0-4.3) 09/04/16 11:11 Baso % (Auto) 0.1 % (0.0-1.8) 09/04/16 11:11 Lymph # 0.5 K/mm3 (1.2-5.4) L 09/04/16 11:11 [place] # 0.7 K/mm3 (0.0-0.8) 09/04/16 11:11 Eos # 0.0 K/mm3 (0.0-0.4) 09/04/16 11:11 Baso # 0.0 K/mm3 (0.0-0.1) 09/04/16 11:11 Add Manual Diff Complete 09/02/16 14:48 Total Counted 100 09/02/16 14:48 Seg Neutrophils % 87.4 % (40.0-70.0) H 09/04/16 11:11 Seg Neuts % (Manual) 92.0 % (40.0-70.0) H 09/02/16 14:48 Band Neutrophils % 1.0 % 09/02/16 14:48 Lymphocytes % (Manual) 4.0 % (13.4-35.0) L 09/02/16 14:48 Reactive Lymphs % (Man) 0 % 09/02/16 14:48 Monocytes % (Manual) 3.0 % (0.0-7.3) 09/02/16 14:48 Eosinophils % (Manual) 0 % (0.0-4.3) 09/02/16 14:48 Basophils % (Manual) 0 % (0.0-1.8) 09/02/16 14:48 Metamyelocytes % 0 % 09/02/16 14:48 Myelocytes % 0 % 09/02/16 14:48 Promyelocytes % 0 % 09/02/16 14:48 Blast Cells % 0 % 09/02/16 14:48 Nucleated RBC % Not Reportable 09/02/16 14:48 Seg Neutrophils # 8.6 K/mm3 (1.8-7.7) H 09/04/16 11:11 Seg Neutrophils # Man 18.8 K/mm3 (1.8-7.7) H 09/02/16 14:48 Band Neutrophils # 0.2 K/mm3 09/02/16 14:48 Lymphocytes # (Manual) 0.8 K/mm3 (1.2-5.4) L 09/02/16 14:48 Abs React Lymphs (Man) 0.0 K/mm3 09/02/16 14:48 Monocytes # (Manual) 0.6 K/mm3 (0.0-0.8) 09/02/16 14:48 Eosinophils # (Manual) 0.0 K/mm3 (0.0-0.4) 09/02/16 14:48 Basophils # (Manual) 0.0 K/mm3 (0.0-0.1) 09/02/16 14:48 Metamyelocytes # 0.0 K/mm3 09/02/16 14:48 Myelocytes # 0.0 K/mm3 09/02/16 14:48 Promyelocytes # 0.0 K/mm3 09/02/16 14:48 Blast Cells # 0.0 K/mm3 09/02/16 14:48 WBC Morphology Not Reportable 09/02/16 14:48 Hypersegmented Neuts Not Reportable 09/02/16 14:48 Hyposegmented Neuts Not Reportable 09/02/16 14:48 Hypogranular Neuts Not Reportable 09/02/16 14:48 Smudge Cells Not Reportable 09/02/16 14:48 Toxic Granulation Not Reportable 09/02/16 14:48 Toxic Vacuolation Not Reportable 09/02/16 14:48 Dohle Bodies Not Reportable 09/02/16 14:48 Pelger-Huet Anomaly Not Reportable 09/02/16 14:48 Brittani Rods Not Reportable 09/02/16 14:48 Platelet Estimate Appears normal 09/02/16 14:48 Clumped Platelets Not Reportable 09/02/16 14:48 Plt Clumps, EDTA Not Reportable 09/02/16 14:48 Large Platelets Not Reportable 09/02/16 14:48 Giant Platelets Not Reportable 09/02/16 14:48 Platelet Satelliting Not Reportable 09/02/16 14:48 Plt Morphology Comment Not Reportable 09/02/16 14:48 RBC Morphology Not Reportable 09/02/16 14:48 Dimorphic RBCs Not Reportable 09/02/16 14:48 Polychromasia Not Reportable 09/02/16 14:48 Hypochromasia Not Reportable 09/02/16 14:48 Poikilocytosis Not Reportable 09/02/16 14:48 Anisocytosis Not Reportable 09/02/16 14:48 Microcytosis Not Reportable 09/02/16 14:48 Macrocytosis Not Reportable 09/02/16 14:48 Spherocytes Not Reportable 09/02/16 14:48 Pappenheimer Bodies Not Reportable 09/02/16 14:48 Sickle Cells Not Reportable 09/02/16 14:48 Target Cells Not Reportable 09/02/16 14:48 Tear Drop Cells Not Reportable 09/02/16 14:48 Ovalocytes Few 09/02/16 14:48 Helmet Cells Not Reportable 09/02/16 14:48 [place] Bodies Not Reportable 09/02/16 14:48 [place] Rings Not Reportable 09/02/16 14:48 Albert Cells Not Reportable 09/02/16 14:48 Bite Cells Not Reportable 09/02/16 14:48 Crenated Cell Not Reportable 09/02/16 14:48 Elliptocytes Not Reportable 09/02/16 14:48 Acanthocytes (Spur) Not Reportable 09/02/16 14:48 Rouleaux Not Reportable 09/02/16 14:48 Hemoglobin C Crystals Not Reportable 09/02/16 14:48 Schistocytes Not Reportable 09/02/16 14:48 Malaria parasites Not Reportable 09/02/16 14:48 Ronald Bodies Not Reportable 09/02/16 14:48 Hem Pathologist Commnt No 09/02/16 14:48 PT 14.9 Sec. (12.2-14.9) 09/02/16 14:48 INR 1.18 (0.87-1.13) H 09/02/16 14:48 VBG pH 7.356 (7.320-7.420) 09/02/16 14:48 Sodium 157 mmol/L (137-145) H 09/04/16 11:11 Potassium 4.3 mmol/L (3.6-5.0) 09/04/16 11:11 Chloride 123.8 mmol/L (98-107) H 09/04/16 11:11 Carbon Dioxide 20 mmol/L (22-30) L 09/04/16 11:11 Anion Gap 18 mmol/L 09/04/16 11:11 BUN 51 mg/dL (9-20) H 09/04/16 11:11 Creatinine 2.3 mg/dL (0.8-1.5) H 09/04/16 11:11 Estimated GFR 27 ml/min 09/04/16 11:11 BUN/Creatinine Ratio 22.17 % 09/04/16 11:11 Glucose 98 mg/dL (75-100) 09/04/16 11:11 Lactic Acid 0.7 mmol/L (0.7-2.0) 09/02/16 20:42 Calcium 8.6 mg/dL (8.4-10.2) 09/04/16 11:11 Magnesium 2.8 mg/dL (1.7-2.3) H 09/02/16 14:48 Total Bilirubin 0.3 mg/dL (0.1-1.2) 09/03/16 06:05 AST 37 units/L (5-40) 09/03/16 06:05 ALT < 5 units/L (7-56) L 09/03/16 06:05 Alkaline Phosphatase 99 units/L (35-129) 09/03/16 06:05 Total Protein 6.9 g/dL (6.3-8.2) 09/03/16 06:05 Albumin 2.4 g/dL (3.9-5) L 09/03/16 06:05 Albumin/Globulin Ratio 0.5 % 09/03/16 06:05 Lipase 40 units/L (13-60) 09/02/16 14:48 TSH 4.290 mlU/mL (0.270-4.200) H 09/02/16 14:48 Free T4 1.15 ng/dL (0.76-1.46) 09/02/16 14:48 Urine Color Elinor (Yellow) 09/02/16 14:40 Urine Turbidity Turbid (Clear) 09/02/16 14:40 Urine pH 7.0 (5.0-7.0) 09/02/16 14:40 Ur Specific [place] 1.014 (1.003-1.030) 09/02/16 14:40 Urine Protein 100 mg/dl mg/dL (Negative) 09/02/16 14:40 Urine Glucose (UA) Neg mg/dL (Negative) 09/02/16 14:40 Urine Ketones Neg mg/dL (Negative) 09/02/16 14:40 Urine Blood Mod (Negative) 09/02/16 14:40 Urine Nitrite Neg (Negative) 09/02/16 14:40 Urine Bilirubin Neg (Negative) 09/02/16 14:40 Urine Urobilinogen < 2.0 mg/dL (<2.0) 09/02/16 14:40 Ur Leukocyte Esterase Lg (Negative) 09/02/16 14:40 Urine WBC (Auto) 159.0 /HPF (0.0-6.0) H 09/02/16 14:40 Urine RBC (Auto) 130.0 /HPF (0.0-6.0) 09/02/16 14:40 Urine Bacteria (Auto) 4+ /HPF (Negative) 09/02/16 14:40 Urine WBC Clumps 1+ /HPF 09/02/16 14:40 Salicylates < 0.3 mg/dL (2.8-20.0) L 09/02/16 14:48 Urine Opiates Screen Presumptive negative 09/02/16 14:40 Urine Methadone Screen Presumptive negative 09/02/16 14:40 Acetaminophen < 15.0 ug/mL (10.0-30.0) 09/02/16 14:48 Ur Barbiturates Screen Presumptive negative 09/02/16 14:40 Ur Phencyclidine Scrn Presumptive negative 09/02/16 14:40 Ur Amphetamines Screen Presumptive negative 09/02/16 14:40 U Benzodiazepines Scrn Presumptive negative 09/02/16 14:40 Urine Cocaine Screen Presumptive negative 09/02/16 14:40 U Marijuana (THC) Screen Presumptive negative 09/02/16 14:40 Drugs of Abuse Note Disclamer 09/02/16 14:40 Plasma/Serum Alcohol < 0.01 gm% (0-0.07) 09/02/16 14:48
[2016-09-04] MEDS: NAMENDA XR PO SCH (21:51)
[2016-09-04] MEDS: APRESOLINE IV PRN (21:51)
[2016-09-05] MEDS: DUONEB 0.5 MG-3 MG/3 ML SOLN IH SCH ×4 (01:46→20:09)
[2016-09-05] MEDS ORDERED: LOPRESSOR IV ONE (03:05)
[2016-09-05] MEDS: NACL 0.9% 1000 ML 1,000 ML IV SCH (03:26)
[2016-09-05] MEDS ORDERED: PROVENTIL IH PRN (09:08)
[2016-09-05] MEDS ORDERED: LEVAQUIN 750MG/150ML 750 MG/150 ML BAG IV SCH (10:00)
[2016-09-05] MEDS: SINEMET PO SCH ×4 (10:19→22:48)
[2016-09-05] MEDS: ASPIRIN PO SCH (10:19)
[2016-09-05] MEDS: EXELON PO SCH ×2 (10:20→22:48)
[2016-09-05] MEDS ORDERED: FLUARIX QUAD 2016-2017(36 MOS+) IM ONE (13:00)
[2016-09-05] MEDS: D5/0.45NS 1,000 ML IV SCH (16:54)
--- NOTE | 2016-09-05 21:35 | Progress Note ---
History Interval history: went back in afib, HR in 120-140, BP wnl, no complaints; family not present Hospitalist Physical - Constitutional Vitals: Temp Pulse Resp BP Pulse Ox 97.4 F L 79 22 154/81 98 09/05/16 16:30 09/05/16 20:19 09/05/16 20:19 09/05/16 16:30 09/05/16 20:14 General appearance: Present: severe distress, cachectic Results - Labs CBC & Chem 7: 09/04/16 11:11 09/04/16 11:11 Labs: Laboratory Last Values WBC 9.8 K/mm3 (4.5-11.0) 09/04/16 11:11 RBC 3.50 M/mm3 (3.65-5.03) L 09/04/16 11:11 Hgb 9.7 gm/dl (11.8-15.2) L 09/04/16 11:11 Hct 30.6 % (35.5-45.6) L 09/04/16 11:11 MCV 87 fl (84-94) D 09/04/16 11:11 MCH 28 pg (28-32) 09/04/16 11:11 MCHC 32 % (32-34) 09/04/16 11:11 RDW 14.8 % (13.2-15.2) 09/04/16 11:11 Plt Count 184 K/mm3 (140-440) 09/04/16 11:11 Lymph % (Auto) 5.2 % (13.4-35.0) L 09/04/16 11:11 [place] % (Auto) 7.1 % (0.0-7.3) 09/04/16 11:11 Eos % (Auto) 0.2 % (0.0-4.3) 09/04/16 11:11 Baso % (Auto) 0.1 % (0.0-1.8) 09/04/16 11:11 Lymph # 0.5 K/mm3 (1.2-5.4) L 09/04/16 11:11 [place] # 0.7 K/mm3 (0.0-0.8) 09/04/16 11:11 Eos # 0.0 K/mm3 (0.0-0.4) 09/04/16 11:11 Baso # 0.0 K/mm3 (0.0-0.1) 09/04/16 11:11 Add Manual Diff Complete 09/02/16 14:48 Total Counted 100 09/02/16 14:48 Seg Neutrophils % 87.4 % (40.0-70.0) H 09/04/16 11:11 Seg Neuts % (Manual) 92.0 % (40.0-70.0) H 09/02/16 14:48 Band Neutrophils % 1.0 % 09/02/16 14:48 Lymphocytes % (Manual) 4.0 % (13.4-35.0) L 09/02/16 14:48 Reactive Lymphs % (Man) 0 % 09/02/16 14:48 Monocytes % (Manual) 3.0 % (0.0-7.3) 09/02/16 14:48 Eosinophils % (Manual) 0 % (0.0-4.3) 09/02/16 14:48 Basophils % (Manual) 0 % (0.0-1.8) 09/02/16 14:48 Metamyelocytes % 0 % 09/02/16 14:48 Myelocytes % 0 % 09/02/16 14:48 Promyelocytes % 0 % 09/02/16 14:48 Blast Cells % 0 % 09/02/16 14:48 Nucleated RBC % Not Reportable 09/02/16 14:48 Seg Neutrophils # 8.6 K/mm3 (1.8-7.7) H 09/04/16 11:11 Seg Neutrophils # Man 18.8 K/mm3 (1.8-7.7) H 09/02/16 14:48 Band Neutrophils # 0.2 K/mm3 09/02/16 14:48 Lymphocytes # (Manual) 0.8 K/mm3 (1.2-5.4) L 09/02/16 14:48 Abs React Lymphs (Man) 0.0 K/mm3 09/02/16 14:48 Monocytes # (Manual) 0.6 K/mm3 (0.0-0.8) 09/02/16 14:48 Eosinophils # (Manual) 0.0 K/mm3 (0.0-0.4) 09/02/16 14:48 Basophils # (Manual) 0.0 K/mm3 (0.0-0.1) 09/02/16 14:48 Metamyelocytes # 0.0 K/mm3 09/02/16 14:48 Myelocytes # 0.0 K/mm3 09/02/16 14:48 Promyelocytes # 0.0 K/mm3 09/02/16 14:48 Blast Cells # 0.0 K/mm3 09/02/16 14:48 WBC Morphology Not Reportable 09/02/16 14:48 Hypersegmented Neuts Not Reportable 09/02/16 14:48 Hyposegmented Neuts Not Reportable 09/02/16 14:48 Hypogranular Neuts Not Reportable 09/02/16 14:48 Smudge Cells Not Reportable 09/02/16 14:48 Toxic Granulation Not Reportable 09/02/16 14:48 Toxic Vacuolation Not Reportable 09/02/16 14:48 Dohle Bodies Not Reportable 09/02/16 14:48 Pelger-Huet Anomaly Not Reportable 09/02/16 14:48 Brittani Rods Not Reportable 09/02/16 14:48 Platelet Estimate Appears normal 09/02/16 14:48 Clumped Platelets Not Reportable 09/02/16 14:48 Plt Clumps, EDTA Not Reportable 09/02/16 14:48 Large Platelets Not Reportable 09/02/16 14:48 Giant Platelets Not Reportable 09/02/16 14:48 Platelet Satelliting Not Reportable 09/02/16 14:48 Plt Morphology Comment Not Reportable 09/02/16 14:48 RBC Morphology Not Reportable 09/02/16 14:48 Dimorphic RBCs Not Reportable 09/02/16 14:48 Polychromasia Not Reportable 09/02/16 14:48 Hypochromasia Not Reportable 09/02/16 14:48 Poikilocytosis Not Reportable 09/02/16 14:48 Anisocytosis Not Reportable 09/02/16 14:48 Microcytosis Not Reportable 09/02/16 14:48 Macrocytosis Not Reportable 09/02/16 14:48 Spherocytes Not Reportable 09/02/16 14:48 Pappenheimer Bodies Not Reportable 09/02/16 14:48 Sickle Cells Not Reportable 09/02/16 14:48 Target Cells Not Reportable 09/02/16 14:48 Tear Drop Cells Not Reportable 09/02/16 14:48 Ovalocytes Few 09/02/16 14:48 Helmet Cells Not Reportable 09/02/16 14:48 [place] Bodies Not Reportable 09/02/16 14:48 [place] Rings Not Reportable 09/02/16 14:48 Albert Cells Not Reportable 09/02/16 14:48 Bite Cells Not Reportable 09/02/16 14:48 Crenated Cell Not Reportable 09/02/16 14:48 Elliptocytes Not Reportable 09/02/16 14:48 Acanthocytes (Spur) Not Reportable 09/02/16 14:48 Rouleaux Not Reportable 09/02/16 14:48 Hemoglobin C Crystals Not Reportable 09/02/16 14:48 Schistocytes Not Reportable 09/02/16 14:48 Malaria parasites Not Reportable 09/02/16 14:48 Ronald Bodies Not Reportable 09/02/16 14:48 Hem Pathologist Commnt No 09/02/16 14:48 PT 14.9 Sec. (12.2-14.9) 09/02/16 14:48 INR 1.18 (0.87-1.13) H 09/02/16 14:48 VBG pH 7.356 (7.320-7.420) 09/02/16 14:48 Sodium 157 mmol/L (137-145) H 09/04/16 11:11 Potassium 4.3 mmol/L (3.6-5.0) 09/04/16 11:11 Chloride 123.8 mmol/L (98-107) H 09/04/16 11:11 Carbon Dioxide 20 mmol/L (22-30) L 09/04/16 11:11 Anion Gap 18 mmol/L 09/04/16 11:11 BUN 51 mg/dL (9-20) H 09/04/16 11:11 Creatinine 2.3 mg/dL (0.8-1.5) H 09/04/16 11:11 Estimated GFR 27 ml/min 09/04/16 11:11 BUN/Creatinine Ratio 22.17 % 09/04/16 11:11 Glucose 98 mg/dL (75-100) 09/04/16 11:11 Lactic Acid 0.7 mmol/L (0.7-2.0) 09/02/16 20:42 Calcium 8.6 mg/dL (8.4-10.2) 09/04/16 11:11 Magnesium 2.8 mg/dL (1.7-2.3) H 09/02/16 14:48 Total Bilirubin 0.3 mg/dL (0.1-1.2) 09/03/16 06:05 AST 37 units/L (5-40) 09/03/16 06:05 ALT < 5 units/L (7-56) L 09/03/16 06:05 Alkaline Phosphatase 99 units/L (35-129) 09/03/16 06:05 Total Protein 6.9 g/dL (6.3-8.2) 09/03/16 06:05 Albumin 2.4 g/dL (3.9-5) L 09/03/16 06:05 Albumin/Globulin Ratio 0.5 % 09/03/16 06:05 Lipase 40 units/L (13-60) 09/02/16 14:48 TSH 4.290 mlU/mL (0.270-4.200) H 09/02/16 14:48 Free T4 1.15 ng/dL (0.76-1.46) 09/02/16 14:48 Urine Color [place]in[place] (Yellow) 09/02/16 14:40 Urine Turbidity Turbid (Clear) 09/02/16 14:40 Urine pH 7.0 (5.0-7.0) 09/02/16 14:40 Ur Specific [place] 1.014 (1.003-1.030) 09/02/16 14:40 Urine Protein 100 mg/dl mg/dL (Negative) 09/02/16 14:40 Urine Glucose (UA) Neg mg/dL (Negative) 09/02/16 14:40 Urine Ketones Neg mg/dL (Negative) 09/02/16 14:40 Urine Blood Mod (Negative) 09/02/16 14:40 Urine Nitrite Neg (Negative) 09/02/16 14:40 Urine Bilirubin Neg (Negative) 09/02/16 14:40 Urine Urobilinogen < 2.0 mg/dL (<2.0) 09/02/16 14:40 Ur Leukocyte Esterase Lg (Negative) 09/02/16 14:40 Urine WBC (Auto) 159.0 /HPF (0.0-6.0) H 09/02/16 14:40 Urine RBC (Auto) 130.0 /HPF (0.0-6.0) 09/02/16 14:40 Urine Bacteria (Auto) 4+ /HPF (Negative) 09/02/16 14:40 Urine WBC Clumps 1+ /HPF 09/02/16 14:40 Salicylates < 0.3 mg/dL (2.8-20.0) L 09/02/16 14:48 Urine Opiates Screen Presumptive negative 09/02/16 14:40 Urine Methadone Screen Presumptive negative 09/02/16 14:40 Acetaminophen < 15.0 ug/mL (10.0-30.0) 09/02/16 14:48 Ur Barbiturates Screen Presumptive negative 09/02/16 14:40 Ur Phencyclidine Scrn Presumptive negative 09/02/16 14:40 Ur Amphetamines Screen Presumptive negative 09/02/16 14:40 U Benzodiazepines Scrn Presumptive negative 09/02/16 14:40 Urine Cocaine Screen Presumptive negative 09/02/16 14:40 U Marijuana (THC) Screen Presumptive negative 09/02/16 14:40 Drugs of Abuse Note Disclamer 09/02/16 14:40 Plasma/Serum Alcohol < 0.01 gm% (0-0.07) 09/02/16 14:48
[2016-09-05] MEDS: NAMENDA XR PO SCH (22:48)
[2016-09-05] MEDS: LOPRESSOR PO SCH (22:49)
[2016-09-06] MEDS: D5/0.45NS 1,000 ML IV SCH ×2 (02:51→12:28)
[2016-09-06 07:14] LABS: Eosinophils % (Auto) 1.5 % (0.0-4.3); Hematocrit 30.5 % (35.5-45.6); Hemoglobin 9.5 gm/dl (11.8-15.2); Mean Corpuscular HGB Conc 31 % (32-34); Mean Corpuscular Hemoglobin 28 pg (28-32); Mean Corpuscular Volume 88 fl (84-94); Platelet Count 183 K/mm3 (140-440); Red Blood Count 3.47 M/mm3 (3.65-5.03); Red Cell Distribution Width 14.6 % (13.2-15.2); White Blood Count 12.8 K/mm3 (4.5-11.0)
[2016-09-06] MEDS: DUONEB 0.5 MG-3 MG/3 ML SOLN IH SCH ×3 (07:17→20:20)
[2016-09-06 07:25] LABS: BUN/Creatinine Ratio 16.81; Calcium 8.3 mg/dL (8.4-10.2); Chloride 123.8 mmol/L (98-107); Magnesium 1.9 mg/dL (1.7-2.3); Potassium 4.1 mmol/L (3.6-5.0)
[2016-09-06] MEDS: SINEMET PO SCH ×4 (10:49→22:47)
[2016-09-06] MEDS: LOPRESSOR PO SCH ×2 (10:49→22:46)
[2016-09-06] MEDS: ASPIRIN PO SCH (10:50)
[2016-09-06] MEDS: EXELON PO SCH ×2 (10:51→22:45)
[2016-09-06] MEDS ORDERED: FLUARIX QUAD 2016-2017(36 MOS+) IM ONE (14:25)
[2016-09-06] MEDS: APRESOLINE IV PRN (17:11)
--- NOTE | 2016-09-06 19:13 | Progress Note ---
Hospitalist Physical - Constitutional Vitals: Temp Pulse Resp BP Pulse Ox 97.3 F L 87 18 195/113 95 09/06/16 17:52 09/06/16 17:52 09/06/16 17:52 09/06/16 17:52 09/06/16 17:52 General appearance: Present: severe distress, cachectic Results - Labs CBC & Chem 7: 09/06/16 06:44 09/06/16 06:44 Labs: Laboratory Last Values WBC 12.8 K/mm3 (4.5-11.0) H 09/06/16 06:44 RBC 3.47 M/mm3 (3.65-5.03) L 09/06/16 06:44 Hgb 9.5 gm/dl (11.8-15.2) L 09/06/16 06:44 Hct 30.5 % (35.5-45.6) L 09/06/16 06:44 MCV 88 fl (84-94) 09/06/16 06:44 MCH 28 pg (28-32) 09/06/16 06:44 MCHC 31 % (32-34) L 09/06/16 06:44 RDW 14.6 % (13.2-15.2) 09/06/16 06:44 Plt Count 183 K/mm3 (140-440) 09/06/16 06:44 Lymph % (Auto) 5.9 % (13.4-35.0) L 09/06/16 06:44 [place] % (Auto) 5.6 % (0.0-7.3) 09/06/16 06:44 Eos % (Auto) 1.5 % (0.0-4.3) 09/06/16 06:44 Baso % (Auto) 0.0 % (0.0-1.8) 09/06/16 06:44 Lymph # 0.8 K/mm3 (1.2-5.4) L 09/06/16 06:44 [place] # 0.7 K/mm3 (0.0-0.8) 09/06/16 06:44 Eos # 0.2 K/mm3 (0.0-0.4) 09/06/16 06:44 Baso # 0.0 K/mm3 (0.0-0.1) 09/06/16 06:44 Add Manual Diff Complete 03/04/17 14:48 Total Counted 100 09/02/16 14:48 Seg Neutrophils % 87.0 % (40.0-70.0) H 09/06/16 06:44 Seg Neuts % (Manual) 92.0 % (40.0-70.0) H 09/02/16 14:48 Band Neutrophils % 1.0 % 09/02/16 14:48 Lymphocytes % (Manual) 4.0 % (13.4-35.0) L 09/02/16 14:48 Reactive Lymphs % (Man) 0 % 09/02/16 14:48 Monocytes % (Manual) 3.0 % (0.0-7.3) 09/02/16 14:48 Eosinophils % (Manual) 0 % (0.0-4.3) 09/02/16 14:48 Basophils % (Manual) 0 % (0.0-1.8) 09/02/16 14:48 Metamyelocytes % 0 % 09/02/16 14:48 Myelocytes % 0 % 09/02/16 14:48 Promyelocytes % 0 % 09/02/16 14:48 Blast Cells % 0 % 09/02/16 14:48 Nucleated RBC % Not Reportable 09/02/16 14:48 Seg Neutrophils # 11.1 K/mm3 (1.8-7.7) H 09/06/16 06:44 Seg Neutrophils # Man 18.8 K/mm3 (1.8-7.7) H 09/02/16 14:48 Band Neutrophils # 0.2 K/mm3 09/02/16 14:48 Lymphocytes # (Manual) 0.8 K/mm3 (1.2-5.4) L 09/02/16 14:48 Abs React Lymphs (Man) 0.0 K/mm3 09/02/16 14:48 Monocytes # (Manual) 0.6 K/mm3 (0.0-0.8) 09/02/16 14:48 Eosinophils # (Manual) 0.0 K/mm3 (0.0-0.4) 09/02/16 14:48 Basophils # (Manual) 0.0 K/mm3 (0.0-0.1) 09/02/16 14:48 Metamyelocytes # 0.0 K/mm3 09/02/16 14:48 Myelocytes # 0.0 K/mm3 09/02/16 14:48 Promyelocytes # 0.0 K/mm3 09/02/16 14:48 Blast Cells # 0.0 K/mm3 09/02/16 14:48 WBC Morphology Not Reportable 09/02/16 14:48 Hypersegmented Neuts Not Reportable 09/02/16 14:48 Hyposegmented Neuts Not Reportable 09/02/16 14:48 Hypogranular Neuts Not Reportable 09/02/16 14:48 Smudge Cells Not Reportable 09/02/16 14:48 Toxic Granulation Not Reportable 09/02/16 14:48 Toxic Vacuolation Not Reportable 09/02/16 14:48 Dohle Bodies Not Reportable 09/02/16 14:48 Pelger-Huet Anomaly Not Reportable 09/02/16 14:48 Brittani Rods Not Reportable 09/02/16 14:48 Platelet Estimate Appears normal 09/02/16 14:48 Clumped Platelets Not Reportable 09/02/16 14:48 Plt Clumps, EDTA Not Reportable 09/02/16 14:48 Large Platelets Not Reportable 09/02/16 14:48 Giant Platelets Not Reportable 09/02/16 14:48 Platelet Satelliting Not Reportable 09/02/16 14:48 Plt Morphology Comment Not Reportable 09/02/16 14:48 RBC Morphology Not Reportable 09/02/16 14:48 Dimorphic RBCs Not Reportable 09/02/16 14:48 Polychromasia Not Reportable 09/02/16 14:48 Hypochromasia Not Reportable 09/02/16 14:48 Poikilocytosis Not Reportable 09/02/16 14:48 Anisocytosis Not Reportable 09/02/16 14:48 Microcytosis Not Reportable 09/02/16 14:48 Macrocytosis Not Reportable 09/02/16 14:48 Spherocytes Not Reportable 09/02/16 14:48 Pappenheimer Bodies Not Reportable 09/02/16 14:48 Sickle Cells Not Reportable 09/02/16 14:48 Target Cells Not Reportable 09/02/16 14:48 Tear Drop Cells Not Reportable 09/02/16 14:48 Ovalocytes Few 09/02/16 14:48 Helmet Cells Not Reportable 09/02/16 14:48 [place] Bodies Not Reportable 09/02/16 14:48 [place] Rings Not Reportable 09/02/16 14:48 Albert Cells Not Reportable 09/02/16 14:48 Bite Cells Not Reportable 09/02/16 14:48 Crenated Cell Not Reportable 09/02/16 14:48 Elliptocytes Not Reportable 09/02/16 14:48 Acanthocytes (Spur) Not Reportable 09/02/16 14:48 Rouleaux Not Reportable 09/02/16 14:48 Hemoglobin C Crystals Not Reportable 09/02/16 14:48 Schistocytes Not Reportable 09/02/16 14:48 Malaria parasites Not Reportable 09/02/16 14:48 Ronald Bodies Not Reportable 09/02/16 14:48 Hem Pathologist Commnt No 09/02/16 14:48 PT 14.9 Sec. (12.2-14.9) 09/02/16 14:48 INR 1.18 (0.87-1.13) H 09/02/16 14:48 VBG pH 7.356 (7.320-7.420) 09/02/16 14:48 Sodium 155 mmol/L (137-145) H 09/06/16 06:44 Potassium 4.1 mmol/L (3.6-5.0) 09/06/16 06:44 Chloride 123.8 mmol/L (98-107) H 09/06/16 06:44 Carbon Dioxide 18 mmol/L (22-30) L 09/06/16 06:44 Anion Gap 17 mmol/L 09/06/16 06:44 BUN 37 mg/dL (9-20) H 09/06/16 06:44 Creatinine 2.2 mg/dL (0.8-1.5) H 09/06/16 06:44 Estimated GFR 29 ml/min 09/06/16 06:44 BUN/Creatinine Ratio 16.81 % 09/06/16 06:44 Glucose 109 mg/dL (75-100) H 09/06/16 06:44 Lactic Acid 0.7 mmol/L (0.7-2.0) 09/02/16 20:42 Calcium 8.3 mg/dL (8.4-10.2) L 09/06/16 06:44 Magnesium 1.9 mg/dL (1.7-2.3) 09/06/16 06:44 Total Bilirubin 0.3 mg/dL (0.1-1.2) 09/03/16 06:05 AST 37 units/L (5-40) 09/03/16 06:05 ALT < 5 units/L (7-56) L 09/03/16 06:05 Alkaline Phosphatase 99 units/L (35-129) 09/03/16 06:05 Total Protein 6.9 g/dL (6.3-8.2) 09/03/16 06:05 Albumin 2.4 g/dL (3.9-5) L 09/03/16 06:05 Albumin/Globulin Ratio 0.5 % 09/03/16 06:05 Lipase 40 units/L (13-60) 09/02/16 14:48 TSH 4.290 mlU/mL (0.270-4.200) H 09/02/16 14:48 Free T4 1.15 ng/dL (0.76-1.46) 09/02/16 14:48 Urine Color [place]in[place] (Yellow) 09/02/16 14:40 Urine Turbidity Turbid (Clear) 09/02/16 14:40 Urine pH 7.0 (5.0-7.0) 09/02/16 14:40 Ur Specific [place] 1.014 (1.003-1.030) 09/02/16 14:40 Urine Protein 100 mg/dl mg/dL (Negative) 09/02/16 14:40 Urine Glucose (UA) Neg mg/dL (Negative) 09/02/16 14:40 Urine Ketones Neg mg/dL (Negative) 09/02/16 14:40 Urine Blood Mod (Negative) 09/02/16 14:40 Urine Nitrite Neg (Negative) 09/02/16 14:40 Urine Bilirubin Neg (Negative) 09/02/16 14:40 Urine Urobilinogen < 2.0 mg/dL (<2.0) 09/02/16 14:40 Ur Leukocyte Esterase Lg (Negative) 09/02/16 14:40 Urine WBC (Auto) 159.0 /HPF (0.0-6.0) H 09/02/16 14:40 Urine RBC (Auto) 130.0 /HPF (0.0-6.0) 09/02/16 14:40 Urine Bacteria (Auto) 4+ /HPF (Negative) 09/02/16 14:40 Urine WBC Clumps 1+ /HPF 09/02/16 14:40 Salicylates < 0.3 mg/dL (2.8-20.0) L 09/02/16 14:48 Urine Opiates Screen Presumptive negative 09/02/16 14:40 Urine Methadone Screen Presumptive negative 09/02/16 14:40 Acetaminophen < 15.0 ug/mL (10.0-30.0) 09/02/16 14:48 Ur Barbiturates Screen Presumptive negative 09/02/16 14:40 Ur Phencyclidine Scrn Presumptive negative 09/02/16 14:40 Ur Amphetamines Screen Presumptive negative 09/02/16 14:40 U Benzodiazepines Scrn Presumptive negative 09/02/16 14:40 Urine Cocaine Screen Presumptive negative 09/02/16 14:40 U Marijuana (THC) Screen Presumptive negative 09/02/16 14:40 Drugs of Abuse Note Disclamer 09/02/16 14:40 Plasma/Serum Alcohol < 0.01 gm% (0-0.07) 09/02/16 14:48
[2016-09-06] MEDS: NAMENDA XR PO SCH (22:45)
[2016-09-07 07:37] LABS: BUN/Creatinine Ratio 16.19; Calcium 8.2 mg/dL (8.4-10.2); Chloride 120.5 mmol/L (98-107); Potassium 4.3 mmol/L (3.6-5.0)
[2016-09-07] MEDS: DUONEB 0.5 MG-3 MG/3 ML SOLN IH SCH ×3 (07:45→20:42)
[2016-09-07] MEDS: LOPRESSOR PO SCH ×2 (13:13→21:35)
[2016-09-07] MEDS: LEVAQUIN PO SCH (13:13)
[2016-09-07] MEDS: ASPIRIN PO SCH (13:13)
[2016-09-07] MEDS: EXELON PO SCH ×2 (13:13→21:34)
[2016-09-07] MEDS: SINEMET PO SCH ×4 (13:14→21:35)
--- NOTE | 2016-09-07 20:06 | Progress Note ---
Assessment and Plan Assessment and plan: Sepsis secondary to UTI A. fib with RVR Acute on chronic kidney disease Hypernatremia Abnormal CT abdomen Malnutrition History Interval history: somnolent, but arousable present; discussed with abnormal CT abdominal findings suggestive of metastatic disease and past medical history of cancer mentioned in H&P; stating that he has never been diagnosed with any type of cancer; obtained his PCP name , will try to contact his office and obtain records Hospitalist Physical - Constitutional Vitals: Temp Pulse Resp BP Pulse Ox 98.3 F 74 18 137/85 96 09/07/16 18:29 09/07/16 18:29 09/07/16 18:29 09/07/16 18:29 09/07/16 18:29 General appearance: Present: severe distress, cachectic Results - Labs CBC & Chem 7: 09/06/16 06:44 09/07/16 06:04 Labs: Laboratory Last Values WBC 12.8 K/mm3 (4.5-11.0) H 09/06/16 06:44 RBC 3.47 M/mm3 (3.65-5.03) L 09/06/16 06:44 Hgb 9.5 gm/dl (11.8-15.2) L 09/06/16 06:44 Hct 30.5 % (35.5-45.6) L 09/06/16 06:44 MCV 88 fl (84-94) 09/06/16 06:44 MCH 28 pg (28-32) 09/06/16 06:44 MCHC 31 % (32-34) L 09/06/16 06:44 RDW 14.6 % (13.2-15.2) 09/06/16 06:44 Plt Count 183 K/mm3 (140-440) 09/06/16 06:44 Lymph % (Auto) 5.9 % (13.4-35.0) L 09/06/16 06:44 [place] % (Auto) 5.6 % (0.0-7.3) 09/06/16 06:44 Eos % (Auto) 1.5 % (0.0-4.3) 09/06/16 06:44 Baso % (Auto) 0.0 % (0.0-1.8) 09/06/16 06:44 Lymph # 0.8 K/mm3 (1.2-5.4) L 09/06/16 06:44 [place] # 0.7 K/mm3 (0.0-0.8) 09/06/16 06:44 Eos # 0.2 K/mm3 (0.0-0.4) 09/06/16 06:44 Baso # 0.0 K/mm3 (0.0-0.1) 09/06/16 06:44 Add Manual Diff Complete 09/02/16 14:48 Total Counted 100 09/02/16 14:48 Seg Neutrophils % 87.0 % (40.0-70.0) H 09/06/16 06:44 Seg Neuts % (Manual) 92.0 % (40.0-70.0) H 09/02/16 14:48 Band Neutrophils % 1.0 % 09/02/16 14:48 Lymphocytes % (Manual) 4.0 % (13.4-35.0) L 09/02/16 14:48 Reactive Lymphs % (Man) 0 % 09/02/16 14:48 Monocytes % (Manual) 3.0 % (0.0-7.3) 09/02/16 14:48 Eosinophils % (Manual) 0 % (0.0-4.3) 09/02/16 14:48 Basophils % (Manual) 0 % (0.0-1.8) 09/02/16 14:48 Metamyelocytes % 0 % 09/02/16 14:48 Myelocytes % 0 % 09/02/16 14:48 Promyelocytes % 0 % 09/02/16 14:48 Blast Cells % 0 % 09/02/16 14:48 Nucleated RBC % Not Reportable 09/02/16 14:48 Seg Neutrophils # 11.1 K/mm3 (1.8-7.7) H 09/06/16 06:44 Seg Neutrophils # Man 18.8 K/mm3 (1.8-7.7) H 09/02/16 14:48 Band Neutrophils # 0.2 K/mm3 09/02/16 14:48 Lymphocytes # (Manual) 0.8 K/mm3 (1.2-5.4) L 09/02/16 14:48 Abs React Lymphs (Man) 0.0 K/mm3 09/02/16 14:48 Monocytes # (Manual) 0.6 K/mm3 (0.0-0.8) 09/02/16 14:48 Eosinophils # (Manual) 0.0 K/mm3 (0.0-0.4) 09/02/16 14:48 Basophils # (Manual) 0.0 K/mm3 (0.0-0.1) 09/02/16 14:48 Metamyelocytes # 0.0 K/mm3 09/02/16 14:48 Myelocytes # 0.0 K/mm3 09/02/16 14:48 Promyelocytes # 0.0 K/mm3 09/02/16 14:48 Blast Cells # 0.0 K/mm3 09/02/16 14:48 WBC Morphology Not Reportable 09/02/16 14:48 Hypersegmented Neuts Not Reportable 09/02/16 14:48 Hyposegmented Neuts Not Reportable 09/02/16 14:48 Hypogranular Neuts Not Reportable 09/02/16 14:48 Smudge Cells Not Reportable 09/02/16 14:48 Toxic Granulation Not Reportable 09/02/16 14:48 Toxic Vacuolation Not Reportable 09/02/16 14:48 Dohle Bodies Not Reportable 09/02/16 14:48 Pelger-Huet Anomaly Not Reportable 09/02/16 14:48 Brittani Rods Not Reportable 09/02/16 14:48 Platelet Estimate Appears normal 09/02/16 14:48 Clumped Platelets Not Reportable 09/02/16 14:48 Plt Clumps, EDTA Not Reportable 09/02/16 14:48 Large Platelets Not Reportable 09/02/16 14:48 Giant Platelets Not Reportable 09/02/16 14:48 Platelet Satelliting Not Reportable 09/02/16 14:48 Plt Morphology Comment Not Reportable 09/02/16 14:48 RBC Morphology Not Reportable 09/02/16 14:48 Dimorphic RBCs Not Reportable 09/02/16 14:48 Polychromasia Not Reportable 09/02/16 14:48 Hypochromasia Not Reportable 09/02/16 14:48 Poikilocytosis Not Reportable 09/02/16 14:48 Anisocytosis Not Reportable 09/02/16 14:48 Microcytosis Not Reportable 09/02/16 14:48 Macrocytosis Not Reportable 09/02/16 14:48 Spherocytes Not Reportable 09/02/16 14:48 Pappenheimer Bodies Not Reportable 09/02/16 14:48 Sickle Cells Not Reportable 09/02/16 14:48 Target Cells Not Reportable 09/02/16 14:48 Tear Drop Cells Not Reportable 09/02/16 14:48 Ovalocytes Few 09/02/16 14:48 Helmet Cells Not Reportable 09/02/16 14:48 [place] Bodies Not Reportable 09/02/16 14:[address] [place] Rings Not Reportable 09/02/16 14:48 [place] Cells Not Reportable 09/02/16 14:48 Bite Cells Not Reportable 09/02/16 14:48 Crenated Cell Not Reportable 09/02/16 14:48 Elliptocytes Not Reportable 09/02/16 14:48 Acanthocytes (Spur) Not Reportable 09/02/16 14:48 Rouleaux Not Reportable 09/02/16 14:48 Hemoglobin C Crystals Not Reportable 09/02/16 14:48 Schistocytes Not Reportable 09/02/16 14:48 Malaria parasites Not Reportable 09/02/16 14:48 Ronald Bodies Not Reportable 09/02/16 14:48 Hem Pathologist Commnt No 09/02/16 14:48 PT 14.9 Sec. (12.2-14.9) 09/02/16 14:48 INR 1.18 (0.87-1.13) H 09/02/16 14:48 VBG pH 7.356 (7.320-7.420) 09/02/16 14:48 Sodium 151 mmol/L (137-145) H 09/07/16 06:04 Potassium 4.3 mmol/L (3.6-5.0) 09/07/16 06:04 Chloride 120.5 mmol/L (98-107) H 09/07/16 06:04 Carbon Dioxide 19 mmol/L (22-30) L 09/07/16 06:04 Anion Gap 16 mmol/L 09/07/16 06:04 BUN 34 mg/dL (9-20) H 09/07/16 06:04 Creatinine 2.1 mg/dL (0.8-1.5) H 09/07/16 06:04 Estimated GFR 30 ml/min 09/07/16 06:04 BUN/Creatinine Ratio 16.19 % 09/07/16 06:04 Glucose 101 mg/dL (75-100) H 09/07/16 06:04 POC Glucose 113 (70-105) H 09/06/16 21:45 Lactic Acid 0.7 mmol/L (0.7-2.0) 09/02/16 20:42 Calcium 8.2 mg/dL (8.4-10.2) L 09/07/16 06:04 Magnesium 1.9 mg/dL (1.7-2.3) 09/06/16 06:44 Total Bilirubin 0.3 mg/dL (0.1-1.2) 09/03/16 06:05 AST 37 units/L (5-40) 09/03/16 06:05 ALT < 5 units/L (7-56) L 09/03/16 06:05 Alkaline Phosphatase 99 units/L (35-129) 09/03/16 06:05 Total Protein 6.9 g/dL (6.3-8.2) 09/03/16 06:05 Albumin 2.4 g/dL (3.9-5) L 09/03/16 06:05 Albumin/Globulin Ratio 0.5 % 09/03/16 06:05 Lipase 40 units/L (13-60) 09/02/16 14:48 TSH 4.290 mlU/mL (0.270-4.200) H 09/02/16 14:48 Free T4 1.15 ng/dL (0.76-1.46) 09/02/16 14:48 Urine Color Elinor (Yellow) 09/02/16 14:40 Urine Turbidity Turbid (Clear) 09/02/16 14:40 Urine pH 7.0 (5.0-7.0) 09/02/16 14:40 Ur Specific [place] 1.014 (1.003-1.030) 09/02/16 14:40 Urine Protein 100 mg/dl mg/dL (Negative) 09/02/16 14:40 Urine Glucose (UA) Neg mg/dL (Negative) 09/02/16 14:40 Urine Ketones Neg mg/dL (Negative) 09/02/16 14:40 Urine Blood Mod (Negative) 09/02/16 14:40 Urine Nitrite Neg (Negative) 09/02/16 14:40 Urine Bilirubin Neg (Negative) 09/02/16 14:40 Urine Urobilinogen < 2.0 mg/dL (<2.0) 09/02/16 14:40 Ur Leukocyte Esterase Lg (Negative) 09/02/16 14:40 Urine WBC (Auto) 159.0 /HPF (0.0-6.0) H 09/02/16 14:40 Urine RBC (Auto) 130.0 /HPF (0.0-6.0) 09/02/16 14:40 Urine Bacteria (Auto) 4+ /HPF (Negative) 09/02/16 14:40 Urine WBC Clumps 1+ /HPF 09/02/16 14:40 Salicylates < 0.3 mg/dL (2.8-20.0) L 09/02/16 14:48 Urine Opiates Screen Presumptive negative 09/02/16 14:40 Urine Methadone Screen Presumptive negative 09/02/16 14:40 Acetaminophen < 15.0 ug/mL (10.0-30.0) 09/02/16 14:48 Ur Barbiturates Screen Presumptive negative 09/02/16 14:40 Ur Phencyclidine Scrn Presumptive negative 09/02/16 14:40 Ur Amphetamines Screen Presumptive negative 09/02/16 14:40 U Benzodiazepines Scrn Presumptive negative 09/02/16 14:40 Urine Cocaine Screen Presumptive negative 09/02/16 14:40 U Marijuana (THC) Screen Presumptive negative 09/02/16 14:40 Drugs of Abuse Note Disclamer 09/02/16 14:40 Plasma/Serum Alcohol < 0.01 gm% (0-0.07) 09/02/16 14:48
[2016-09-07] MEDS: NAMENDA XR PO SCH (21:34)
[2016-09-08 05:41] LABS: Basophils % (Auto) 0.1 % (0.0-1.8); Eosinophils % (Auto) 2.8 % (0.0-4.3); Hematocrit 35.7 % (35.5-45.6); Hemoglobin 11.2 gm/dl (11.8-15.2); Mean Corpuscular HGB Conc 31 % (32-34); Mean Corpuscular Hemoglobin 27 pg (28-32); Mean Corpuscular Volume 88 fl (84-94); Platelet Count 235 K/mm3 (140-440); Red Blood Count 4.07 M/mm3 (3.65-5.03); Red Cell Distribution Width 14.4 % (13.2-15.2); White Blood Count 18.3 K/mm3 (4.5-11.0)
[2016-09-08 06:04] LABS: BUN/Creatinine Ratio 17.89; Calcium 8.1 mg/dL (8.4-10.2); Chloride 117.4 mmol/L (98-107); Potassium 4.2 mmol/L (3.6-5.0)
[2016-09-08] MEDS: DUONEB 0.5 MG-3 MG/3 ML SOLN IH SCH ×3 (08:27→20:09)
[2016-09-08] MEDS ORDERED: PROVENTIL IH PRN (09:00)
[2016-09-08] MEDS: SINEMET PO SCH ×4 (10:00→22:38)
[2016-09-08] MEDS ORDERED: PNEUMOVAX 23 IM ONE (12:00)
[2016-09-08] MEDS: ASPIRIN PO SCH (13:00)
[2016-09-08] MEDS: LOPRESSOR PO SCH ×2 (13:00→22:45)
[2016-09-08] MEDS: EXELON PO SCH ×2 (13:00→22:38)
[2016-09-08] MEDS: D5/0.45NS 1,000 ML IV SCH (16:12)
--- NOTE | 2016-09-08 19:24 | Progress Note ---
Assessment and Plan Assessment and plan: Sepsis secondary to UTI A. fib with RVR Acute on chronic kidney disease Hypernatremia Abnormal CT abdomen Malnutrition Hospitalist Physical - Constitutional Vitals: Temp Pulse Resp BP Pulse Ox 97.0 F L 110 H 18 124/73 97 09/08/16 18:13 09/08/16 18:13 09/08/16 18:13 09/08/16 18:13 09/08/16 18:13 General appearance: Present: severe distress, cachectic Results - Labs CBC & Chem 7: 09/08/16 04:49 09/08/16 04:49 Labs: Laboratory Last Values WBC 18.3 K/mm3 (4.5-11.0) H 09/08/16 04:49 RBC 4.07 M/mm3 (3.65-5.03) 09/08/16 04:49 Hgb 11.2 gm/dl (11.8-15.2) L 09/08/16 04:49 Hct 35.7 % (35.5-45.6) 09/08/16 04:49 MCV 88 fl (84-94) 09/08/16 04:49 MCH 27 pg (28-32) L 09/08/16 04:49 MCHC 31 % (32-34) L 09/08/16 04:49 RDW 14.4 % (13.2-15.2) 09/08/16 04:49 Plt Count 235 K/mm3 (140-440) 09/08/16 04:49 Lymph % (Auto) 5.9 % (13.4-35.0) L 09/08/16 04:49 [place] % (Auto) 4.8 % (0.0-7.3) 09/08/16 04:49 Eos % (Auto) 2.8 % (0.0-4.3) 09/08/16 04:49 Baso % (Auto) 0.1 % (0.0-1.8) 09/08/16 04:49 Lymph # 1.1 K/mm3 (1.2-5.4) L 09/08/16 04:49 [place] # 0.9 K/mm3 (0.0-0.8) H 09/08/16 04:49 Eos # 0.5 K/mm3 (0.0-0.4) H 09/08/16 04:49 Baso # 0.0 K/mm3 (0.0-0.1) 09/08/16 04:49 Add Manual Diff Complete 09/02/16 14:48 Total Counted 100 09/02/16 14:48 Seg Neutrophils % 86.4 % (40.0-70.0) H 09/08/16 04:49 Seg Neuts % (Manual) 92.0 % (40.0-70.0) H 09/02/16 14:48 Band Neutrophils % 1.0 % 09/02/16 14:48 Lymphocytes % (Manual) 4.0 % (13.4-35.0) L 09/02/16 14:48 Reactive Lymphs % (Man) 0 % 09/02/16 14:48 Monocytes % (Manual) 3.0 % (0.0-7.3) 09/02/16 14:48 Eosinophils % (Manual) 0 % (0.0-4.3) 09/02/16 14:48 Basophils % (Manual) 0 % (0.0-1.8) 09/02/16 14:48 Metamyelocytes % 0 % 09/02/16 14:48 Myelocytes % 0 % 09/02/16 14:48 Promyelocytes % 0 % 09/02/16 14:48 Blast Cells % 0 % 09/02/16 14:48 Nucleated RBC % Not Reportable 09/02/16 14:48 Seg Neutrophils # 15.8 K/mm3 (1.8-7.7) H 09/08/16 04:49 Seg Neutrophils # Man 18.8 K/mm3 (1.8-7.7) H 09/02/16 14:48 Band Neutrophils # 0.2 K/mm3 09/02/16 14:48 Lymphocytes # (Manual) 0.8 K/mm3 (1.2-5.4) L 09/02/16 14:48 Abs React Lymphs (Man) 0.0 K/mm3 09/02/16 14:48 Monocytes # (Manual) 0.6 K/mm3 (0.0-0.8) 09/02/16 14:48 Eosinophils # (Manual) 0.0 K/mm3 (0.0-0.4) 09/02/16 14:48 Basophils # (Manual) 0.0 K/mm3 (0.0-0.1) 09/02/16 14:48 Metamyelocytes # 0.0 K/mm3 09/02/16 14:48 Myelocytes # 0.0 K/mm3 09/02/16 14:48 Promyelocytes # 0.0 K/mm3 09/02/16 14:48 Blast Cells # 0.0 K/mm3 09/02/16 14:48 WBC Morphology Not Reportable 09/02/16 14:48 Hypersegmented Neuts Not Reportable 09/02/16 14:48 Hyposegmented Neuts Not Reportable 09/02/16 14:48 Hypogranular Neuts Not Reportable 09/02/16 14:48 Smudge Cells Not Reportable 09/02/16 14:48 Toxic Granulation Not Reportable 09/02/16 14:48 Toxic Vacuolation Not Reportable 09/02/16 14:48 Dohle Bodies Not Reportable 09/02/16 14:48 Pelger-Huet Anomaly Not Reportable 09/02/16 14:48 Brittani Rods Not Reportable 09/02/16 14:48 Platelet Estimate Appears normal 09/02/16 14:48 Clumped Platelets Not Reportable 09/02/16 14:48 Plt Clumps, EDTA Not Reportable 09/02/16 14:48 Large Platelets Not Reportable 09/02/16 14:48 Giant Platelets Not Reportable 09/02/16 14:48 Platelet Satelliting Not Reportable 09/02/16 14:48 Plt Morphology Comment Not Reportable 09/02/16 14:48 RBC Morphology Not Reportable 09/02/16 14:48 Dimorphic RBCs Not Reportable 09/02/16 14:48 Polychromasia Not Reportable 09/02/16 14:48 Hypochromasia Not Reportable 09/02/16 14:48 Poikilocytosis Not Reportable 09/02/16 14:48 Anisocytosis Not Reportable 09/02/16 14:48 Microcytosis Not Reportable 09/02/16 14:48 Macrocytosis Not Reportable 09/02/16 14:48 Spherocytes Not Reportable 09/02/16 14:48 Pappenheimer Bodies Not Reportable 09/02/16 14:48 Sickle Cells Not Reportable 09/02/16 14:48 Target Cells Not Reportable 09/02/16 14:48 Tear Drop Cells Not Reportable 09/02/16 14:48 Ovalocytes Few 09/02/16 14:48 Helmet Cells Not Reportable 09/02/16 14:48 [place] Bodies Not Reportable 09/02/16 14:48 Petal Rings Not Reportable 09/02/16 14:48 [place] Cells Not Reportable 09/02/16 14:48 Bite Cells Not Reportable 09/02/16 14:48 Crenated Cell Not Reportable 09/02/16 14:48 Elliptocytes Not Reportable 09/02/16 14:48 Acanthocytes (Spur) Not Reportable 09/02/16 14:48 Rouleaux Not Reportable 09/02/16 14:48 Hemoglobin C Crystals Not Reportable 09/02/16 14:48 Schistocytes Not Reportable 09/02/16 14:48 Malaria parasites Not Reportable 09/02/16 14:48 Ronald Bodies Not Reportable 09/02/16 14:48 Hem Pathologist Commnt No 09/02/16 14:48 PT 14.9 Sec. (12.2-14.9) 09/02/16 14:48 INR 1.18 (0.87-1.13) H 09/02/16 14:48 VBG pH 7.356 (7.320-7.420) 09/02/16 14:48 Sodium 149 mmol/L (137-145) H 09/08/16 04:49 Potassium 4.2 mmol/L (3.6-5.0) 09/08/16 04:49 Chloride 117.4 mmol/L (98-107) H 09/08/16 04:49 Carbon Dioxide 18 mmol/L (22-30) L 09/08/16 04:49 Anion Gap 18 mmol/L 09/08/16 04:49 BUN 34 mg/dL (9-20) H 09/08/16 04:49 Creatinine 1.9 mg/dL (0.8-1.5) H 09/08/16 04:49 Estimated GFR 34 ml/min 09/08/16 04:49 BUN/Creatinine Ratio 17.89 % 09/08/16 04:49 Glucose 90 mg/dL (75-100) 09/08/16 04:49 POC Glucose 113 (70-105) H 09/06/16 21:45 Lactic Acid 0.7 mmol/L (0.7-2.0) 09/02/16 20:42 Calcium 8.1 mg/dL (8.4-10.2) L 09/08/16 04:49 Magnesium 1.9 mg/dL (1.7-2.3) 09/06/16 06:44 Total Bilirubin 0.3 mg/dL (0.1-1.2) 09/03/16 06:05 AST 37 units/L (5-40) 09/03/16 06:05 ALT < 5 units/L (7-56) L 09/03/16 06:05 Alkaline Phosphatase 99 units/L (35-129) 09/03/16 06:05 Total Protein 6.9 g/dL (6.3-8.2) 09/03/16 06:05 Albumin 2.4 g/dL (3.9-5) L 09/03/16 06:05 Albumin/Globulin Ratio 0.5 % 09/03/16 06:05 Lipase 40 units/L (13-60) 09/02/16 14:48 TSH 4.290 mlU/mL (0.270-4.200) H 09/02/16 14:48 Free T4 1.15 ng/dL (0.76-1.46) 09/02/16 14:48 Urine Color Elinor (Yellow) 09/02/16 14:40 Urine Turbidity Turbid (Clear) 09/02/16 14:40 Urine pH 7.0 (5.0-7.0) 09/02/16 14:40 Ur Specific [place] 1.014 (1.003-1.030) 09/02/16 14:40 Urine Protein 100 mg/dl mg/dL (Negative) 09/02/16 14:40 Urine Glucose (UA) Neg mg/dL (Negative) 09/02/16 14:40 Urine Ketones Neg mg/dL (Negative) 09/02/16 14:40 Urine Blood Mod (Negative) 09/02/16 14:40 Urine Nitrite Neg (Negative) 09/02/16 14:40 Urine Bilirubin Neg (Negative) 09/02/16 14:40 Urine Urobilinogen < 2.0 mg/dL (<2.0) 09/02/16 14:40 Ur Leukocyte Esterase Lg (Negative) 09/02/16 14:40 Urine WBC (Auto) 159.0 /HPF (0.0-6.0) H 09/02/16 14:40 Urine RBC (Auto) 130.0 /HPF (0.0-6.0) 09/02/16 14:40 Urine Bacteria (Auto) 4+ /HPF (Negative) 09/02/16 14:40 Urine WBC Clumps 1+ /HPF 09/02/16 14:40 Salicylates < 0.3 mg/dL (2.8-20.0) L 09/02/16 14:48 Urine Opiates Screen Presumptive negative 09/02/16 14:40 Urine Methadone Screen Presumptive negative 09/02/16 14:40 Acetaminophen < 15.0 ug/mL (10.0-30.0) 09/02/16 14:48 Ur Barbiturates Screen Presumptive negative 09/02/16 14:40 Ur Phencyclidine Scrn Presumptive negative 09/02/16 14:40 Ur Amphetamines Screen Presumptive negative 09/02/16 14:40 U Benzodiazepines Scrn Presumptive negative 09/02/16 14:40 Urine Cocaine Screen Presumptive negative 09/02/16 14:40 U Marijuana (THC) Screen Presumptive negative 09/02/16 14:40 Drugs of Abuse Note Disclamer 09/02/16 14:40 Plasma/Serum Alcohol < 0.01 gm% (0-0.07) 09/02/16 14:48
[2016-09-08] MEDS: NAMENDA XR PO SCH (22:38)
[2016-09-09 05:33] LABS: Hematocrit 34.2 % (35.5-45.6); Hemoglobin 10.8 gm/dl (11.8-15.2); Mean Corpuscular HGB Conc 32 % (32-34); Mean Corpuscular Hemoglobin 28 pg (28-32); Mean Corpuscular Volume 87 fl (84-94); Platelet Count 207 K/mm3 (140-440); Red Blood Count 3.93 M/mm3 (3.65-5.03); Red Cell Distribution Width 14.8 % (13.2-15.2)
[2016-09-09 05:34] LABS: White Blood Count 20.4 K/mm3 (4.5-11.0)
[2016-09-09 05:51] LABS: BUN/Creatinine Ratio 16.81; Calcium 7.9 mg/dL (8.4-10.2); Chloride 115.5 mmol/L (98-107); Potassium 3.9 mmol/L (3.6-5.0)
[2016-09-09] MEDS: DUONEB 0.5 MG-3 MG/3 ML SOLN IH SCH ×3 (07:07→19:30)
[2016-09-09 09:06] LABS: Basophils % (Manual) 0 % (0.0-1.8); Blastocytes % (Manual) 0 %; Eosinophils % (Manual) 0 % (0.0-4.3)
[2016-09-09 09:07] LABS: Anisocytosis 1+; Diff Status Complete; Elliptocytes Few; Large Platelets Few; Ovalocytes 1+; Polychromasia Few
[2016-09-09] MEDS: D5/0.45NS 1,000 ML IV SCH (11:06)
[2016-09-09] MEDS: LOPRESSOR PO SCH (11:07)
[2016-09-09] MEDS: EXELON PO SCH (11:07)
[2016-09-09] MEDS: LEVAQUIN PO SCH (11:07)
[2016-09-09] MEDS: ASPIRIN PO SCH (11:07)
[2016-09-09] MEDS: SINEMET PO SCH ×2 (11:07→16:23)
--- NOTE | 2016-09-09 11:17 | XRay Report ---
AP CHEST :09/09/16 CLINICAL: Leukocytosis and lethargy. COMPARISON:09/02/16 FINDINGS: New opacification of the left lung base with silhouetting of left hemidiaphragm. A previously described opacity in the left mid lung at the lateral pleura or prominent than on the prior exam.The right lung is normally expanded and clear. Normal heart and pulmonary vessels. IMPRESSION: Interval development of left lower lobe atelectasis and possible small pleural effusion. Suspicious left lung opacity. Consider CT chest to evaluate for tumor.
--- NOTE | 2016-09-09 12:16 | Discharge Summary ---
Providers - Providers Date of Admission: 09/02/16 21:30 Date of discharge: 09/09/16 Attending physician: JAYLEN KIMBLE 09/06/16 07:53 Consult to Wound/ET Nurse [CONS] Routine Reason For Exam: wound eval, deep tissue/ bruise left heel, ankle Primary care physician: S[employer]TER Hospitalization Reason for admission: change in mental status Condition: Poor Pertinent studies: CXR CT abdomen/pelvis CT head ECHO Hospital course: Patient is a 85 years old male, assisting living facility resident, with parkinson's disease and dementia, living facility on hospice, previously on hospice, who was brought to the hospital for change in mental status. He is diagnosed with sepsis secondary to urinary tract infection as well has new onset A. fib with RVR, dehydration with subsequent renal failure and hypernatremia. He was started on aggressive hydration, IV antibiotics, rate control medication; due to age and his multiple comorbidities he was considered not a candidate for anticoagulation. During workup it was noted that he has multiple liver lesions consistent with metastatic disease; no previous diagnosis of cancer; discussed at length with family ( and daughter) and due to his very poor functional status, additional workup to diagnose primary cancer was not warranted. Family agrees with hospice care which was arranged through embedded case manager. Discharge diagnosis: 1. Sepsis secondary to UTI 2. A. fib with RVR new onset 3. Dehydration 4. Hypernatremia 5. Acute renal failure 6. Acute encephalopathy 7. 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 Parkinson's disease 9. Dementia 10. Malnutrition Disposition: DC HOSPICE (MEDICAL FACILITY) Time spent for discharge: 35 min Core Measure Documentation - Palliative Care Palliative Care/ Comfort Measures: Hospice Care - Core Measures Any of the following diagnoses?: none Exam - Physical Exam Narrative exam: Patient seen and examined: - Constitutional Vitals: Temp Pulse Resp BP Pulse Ox 98 F 91 H 20 132/72 96 09/09/16 11:23 09/09/16 11:23 09/09/16 11:23 09/09/16 11:23 09/09/16 11:23 General appearance: Present: no acute distress, other (elderly, frail) - EENT Eyes: Present: PERRL, EOM intact - Neck Neck: Present: supple. Absent: enlarged thyroid, masses or JVD - Respiratory Respiratory effort: normal Respiratory: bilateral: CTA, negative: rhonchi, wheezing - Cardiovascular Rhythm: irregularly irregular Heart Sounds: Present: S1 & S2. Absent: systolic murmur - Extremities Extremities: no ischemia - Abdominal General gastrointestinal: Present: soft, non-tender, non-distended, normal bowel sounds - Integumentary Integumentary: Present: warm, dry. Absent: jaundice, rash - Musculoskeletal Musculoskeletal: generalized weakness - Psychiatric Psychiatric: other (confused, answering simple questions, oriented to selph) - Neurologic Neurologic: moves all extremities Plan Activity: advance as tolerated, up only with assistance, fall precautions Diet: low cholesterol, low salt Additional Instructions: Hospice physician will take over patient's care. Follow up with: PRIMARY CARE, [Primary Care Provider] - 3-5 Days Prescriptions: Memantine Xr [Namenda Xr] 28 mg PO QHS #60 cap Aspirin [Aspirin TAB] 325 mg PO QDAY #30 tablet Carbidopa/Levodopa 25-100 [Sinemet 25/100] 1 each PO QID #60 tablet Metoprolol [Lopressor TAB] 25 mg PO BID #60 tablet Rivastigmine Tartrate [Exelon] 3 mg PO BID #120 capsule Levofloxacin [Levaquin TAB] 750 mg PO Q48HR #2 tablet
[2016-09-09 17:17] VITALS: BP 134/74
[2016-09-09 19:22] LABS: Bacteria,Urine 1+ /HPF (Negative); Bilirubin,Urine NEG (Negative); Blood,Urine MOD (Negative); Ketones,Urine NEG (Negative); Leukocyte Esterase,Urine LG (Negative); Mucus,Urine 2+ /HPF; Nitrite,Urine NEG (Negative); Urobilinogen,Urine < 2.0 mg/dL (<2.0)
[2016-09-09 19:25] LABS: WBC,Urine > 182.0 /HPF (0.0-6.0)
== END 2016-09-09 20:01 | disposition hospice, inpatient (51) | DRG 871 ==
LOC: ED 14:17 → 4A 21:30
PROVIDERS: ADMIT Internal Medicine; ATTEND Internal Medicine
DX: A41.9 Sepsis, unspecified organism (principal); G93.40 Encephalopathy, unspecified; N17.9 Acute kidney failure, unspecified; N39.0 Urinary tract infection, site not specified; E46 Unspecified protein-calorie malnutrition; R64 Cachexia; E87.0 Hyperosmolality and hypernatremia; Z68.1 Body mass index [BMI] 19.9 or less, adult; I48.91 Unspecified atrial fibrillation; G30.9 Alzheimer's disease, unspecified; F02.80 Dementia in other diseases classified elsewhere, unspecified severity, without behavioral disturbance, psychotic disturbance, mood disturbance, and anxiety; J44.9 Chronic obstructive pulmonary disease, unspecified; G47.33 Obstructive sleep apnea (adult) (pediatric); Z88.6 Allergy status to analgesic agent; Z87.891 Personal history of nicotine dependence; Z79.899 Other long term (current) drug therapy; Z85.9 Personal history of malignant neoplasm, unspecified; Z82.49 Family history of ischemic heart disease and other diseases of the circulatory system; Z98.890 Other specified postprocedural states
CPT/HCPCS: 36415; 70450; 71010; 74176; 80048; 80053; 80307; 80320; 81001; 82140; 82805; 82962; 83690; 83735; 84439; 84443; 85007; 85025; 85610; 87040; 87086; 90686; 90732; 93005; 93010; 93306; 94640; 94760; 96374; 96375; G0480; J0360; J0696; J1956; J7030